=== PATIENT | female | born 1970 | race Caucasian/White ===

== ENCOUNTER 2017-03-04 01:25 | Observation (INO) ==
[2017-03-04 02:04] LABS: Bilirubin,Urine Small (Negative); Blood,Urine Negative (Negative); Clarity,Urine Cloudy (Clear); Color,Urine Yellow (Yellow); Glucose,Urine (UA) Normal (Normal); Ketones,Urine Negative (Negative); Leukocyte Esterase,Urine Negative (Negative); Nitrite,Urine Negative (Negative); PH,Urine 5.5 pH Units (5.0-8.0); Protein,Urine Negative (Neg-Trace); Specific Gravity,Urine 1.029 (1.010-1.025); Urobilinogen,Urine Normal (Normal)
[2017-03-04 02:06] LABS: Bacteria,Urine None Seen per hpf (None-Few); Hyaline Casts,Urine None Seen per lpf (None-Few); Squamous Epithelial Cell,Urine Many per lpf (None-Few)
[2017-03-04 02:15] LABS: Mucus,Urine Few (Few)
[2017-03-04 02:17] LABS: Basophils # 0.1 K/mcL (0.0-0.2); Basophils % 0.8 %; Eosinophils # 0.1 K/mcL (0.0-0.6); Eosinophils % 2.2 %; Hematocrit 44.4 % (35.3-44.9); Immature Granulocytes % 0.2 % (0-4); Lymphocytes # 1.6 K/mcL (0.6-4.6); Mean Corpuscular HGB Conc 33.8 g/dL (31.6-35.5); Mean Corpuscular Hemoglobin 32.1 pg (28.0-33.3); Mean Corpuscular Volume 95.1 fL (83.0-100.0); Mean Platelet Volume 11.5 fL (9.4-12.4); Monocytes # 0.7 K/mcL (0.0-1.3); Monocytes % 10.6 %; Neutrophils # 3.8 K/mcL (1.6-8.9); Platelet Count 243 K/mcL (140-400); Red Blood Count 4.67 M/mcL (3.82-4.97); Red Cell Distribution Width 12.4 % (11.5-14.5); Segmented Neutrophils % 60.2 %
[2017-03-04 02:28] LABS: Alanine Aminotransferase 18 Units/L (0-55); Albumin 3.5 g/dL (3.5-5.0); Alkaline Phosphatase 68 Units/L (38-126); Aspartate Amino Transferase 19 Units/L (5-34); BUN/Creatinine Ratio 10 (6-26); Bilirubin,Direct 0.3 mg/dL (0.0-0.5); Bilirubin,Indirect 0.5 mg/dL (0.0-1.2); Bilirubin,Total 0.8 mg/dL (0.2-1.2); Blood Urea Nitrogen 8 mg/dL (7-20); Calcium 9.1 mg/dL (8.6-10.8); Carbon Dioxide 23 mEq/L (19-29); Chloride 108 mEq/L (98-109); Globulin 3.5 g/dL (2.4-3.5); Glucose 96 mg/dL (70-99); Lipase 16 Units/L (8-78); Osmolality,Calculated 290 (280-300); Potassium 3.8 mEq/L (3.5-4.5); Sodium 141 mEq/L (136-145); eGFR For African Americans > 60 (> 60); eGFR For Non-African Americans > 60 (> 60)
[2017-03-04] MEDS ORDERED: *HR* Morphine 2 MG/ML SYRINGE IVP ONE (03:13)
[2017-03-04] MEDS ORDERED: Ondansetron 4 MG/2 ML VIAL IVP ONE (03:13)
--- NOTE | 2017-03-04 03:21 | Emergency Department Note ---
Disposition Clinical Impression: Ventral hernia Disposition: Admitted As Inpatient Condition: Fair Time of Disposition: 05:02 Abdominal Pain HPI - General Chief Complaint: ED Abdominal Pain Stated Complaint: abdominal pain Time Seen by Provider: 03/04/17 02:40 Source: patient - History of Present Illness HPI Narrative: Patient is a 46-year-old female presents today complaint of abdominal pain. Patient states that around 9 PM yesterday evening she had an episode where she nearly tripped over a child, she braced herself, and felt a pulling sensation in her epigastric abdomen. Patient is status post gastric sleeve with hernia repair on 10/03/2016. She states that she is appreciated a small knot in her epigastric abdomen for the last 2-3 weeks. However following the events this evening she is having extreme abdominal pain rated 8/10. HEENT is described as a pulling sensation. She states "it feels like someone is taking my guts and pulling. Patient states the pain is improved when she is holding her abdomen. Pain is worsened by moving, throwing up, or deep inspiration. Patient describes associated vomiting 2 episodes today. Vomit was nonbloody but described as gritty, light brown. Patient admits chronic diarrhea since her gastric sleeve surgery. She complains that she has dark red blood on the toilet paper after wiping since surgery. Patient has a follow-up with her surgeon on March 15. She also complains of headache that began 2 hours ago. She states that her headache developed while riding in the car to the hospital. Patient locates pain to central forehead. It is indurated 4/10. Pain radiates over the calvarium to the parietal scalp and a posterior fashion. Patient states the pain is better with holding pressure to the frontal head. Pain is made worse by bright light. Admits photophobia. Denies phonophobia, dizziness, numbness, tingling... Pain Scale: 8 - Related Data Previous Rx's Medication Instructions Recorded Hydrocodone/Acetaminophen [[place] 1 tab PO Q6H PRN #10 tab 08/20/15 10-325 Tablet] Omeprazole [PriLOSEC] 40 mg PO DAILY #14 capsule. 08/20/15 Albuterol Sulfate [Albuterol 2 puff IH Q4HR PRN #1 hfa.aer.ad 08/17/16 Inhaler] Cefdinir [Omnicef] 300 mg PO BID #14 capsule 08/17/16 GuaiFENesin/Codeine [Robitussin 5 ml PO Q6HR PRN #100 ml 08/17/16 w/Codeine] predniSONE [Prednisone] 50 mg PO DAILY #5 tablet 08/17/16 Allergies Allergy/AdvReac Type Severity Reaction Status Date / Time No Known Allergies Allergy Verified 12/15/16 21:53 All systems ED: reviewed and negative except as stated. Constitutional: Reports: as per HPI Eyes: Reports: as per HPI ENT ED: Reports: as per HPI Cardiovascular: Reports: as per HPI Respiratory: Reports: as per HPI Gastrointestinal: Reports: as per HPI Genitourinary: Reports: as per HPI Musculoskeletal: Reports: as per HPI Integumentary: Reports: as per HPI Neurological: Reports: as per HPI Psychiatric: Reports: as per HPI Endocrine: Reports: as per HPI Hematological/Lymphatic: Reports: as per HPI Allergic/Immunologic: Reports: as per HPI Abdominal Pain PMH - Past Medical History Medical history: Reports: no medical history Female Surgical History: Reports: Adenoidectomy, herniorrhaphy, Tonsillectomy, other SEAT MAKER history: Reports: no SEAT MAKER history Psychiatric history: Reports: no psych history - Social History Smoking status: Never smoker Alcohol use: Reports: none Drug use: Reports: none Physical Exam - General Limitations: no limitations General appearance: alert, in no apparent distress - Head Head exam: atraumatic, normocephalic, normal inspection - Eye Eye exam: Present: normal appearance, EOMI - ENT ENT exam: normal exam - Neck Neck exam: Present: normal inspection, full ROM, trachea midline - Chest Chest inspection: Present: normal inspection, symmetric chest wall rise - Respiratory Respiratory exam: Present: normal lung sounds bilaterally. Absent: respiratory distress, wheezes, stridor, accessory muscle use - Cardiovascular Cardiovascular exam: Present: regular rate, normal rhythm, +S1, +S2. Absent: systolic murmur, diastolic murmur - Abdominal Exam Abdominal exam: Present: soft, tenderness (I appreciated an approximately 2 cm mass to epigastric region. Exquisite TTP 2 areas surrounding this mass. ), guarding (Voluntary), normal bowel sounds, mass. Absent: distention, rebound, rigidity Abdominal tenderness: Present: epigastrium - Extremities Exam Extremities exam: Present: normal inspection, full ROM. Absent: pedal edema - Back Exam Back exam: Present: normal inspection, full ROM - Neurological Exam Neurological exam: Present: alert, oriented X3, CN II-XII intact - Psychiatric Psychiatric exam: Present: normal affect, normal mood - Skin Skin exam: Present: warm, dry, intact Course Vital Signs Temperature 97.5 F L 03/04/17 01:25 Pulse Rate 88 03/04/17 01:25 Respiratory Rate 20 03/04/17 01:25 Blood Pressure 142/96 03/04/17 01:25 O2 Sat by Pulse Oximetry 96 03/04/17 01:25 Temperature 97.5 F L 03/04/17 01:25 Pulse Rate 76 03/04/17 04:45 Respiratory Rate 18 03/04/17 05:15 Blood Pressure 134/73 03/04/17 05:15 O2 Sat by Pulse Oximetry 96 03/04/17 04:45 Oxygen Delivery Oxygen Delivery Room Air Abdominal Pain - MDM Narrative Medical decision making narrative: Patient is a 46-year-old female who presents with epigastric abdominal pain. Patient is status post gastric sleeve with ventral hernia repair on 10/03/2017 at [facility]. On exam patient has a palpable mass to the epigastric that is exquisitely tender to palpation. Vital signs are normal. CBC is normal. CT abdomen demonstrates a ventral hernia with fat stranding and trace fluid in the supraumbilical ventral hernia that suggests strangulated omentum. The patient wishes to have surgery performed at [facility], if possible. I have spoken to Dr. Diop who accepts the patient to his service. - Lab Data Lab results reviewed: Yes I reviewed the patient's lab results. Result diagrams: 03/04/17 02:05 03/04/17 02:05 Lab Results 03/04/17 03/04/17 03/04/17 Range/Units 01:58 01:58 02:05 WBC 6.3 (4.3-11.1) K/mcL RBC 4.67 (3.82-4.97) M/mcL Hgb 15.0 (11.5-15.4) g/dL Hct 44.4 (35.3-44.9) % MCV 95.1 (83.0-100.0) fL MCH 32.1 (28.0-33.3) pg MCHC 33.8 (31.6-35.5) g/dL RDW 12.4 (11.5-14.5) % Plt Count 243 (140-400) K/mcL MPV 11.5 (9.4-12.4) fL Immature Gran % 0.2 (0-4) % Seg Neutrophils % 60.2 % Lymphocytes % 26.0 % Monocytes % 10.6 % Eosinophils % 2.2 % Basophils % 0.8 % Neutrophils # 3.8 (1.6-8.9) K/mcL Lymphocytes # 1.6 (0.6-4.6) K/mcL Monocytes # 0.7 (0.0-1.3) K/mcL Eosinophils # 0.1 (0.0-0.6) K/mcL Basophils # 0.1 (0.0-0.2) K/mcL Sodium (136-145) mEq/L Potassium (3.5-4.5) mEq/L Chloride (98-109) mEq/L Carbon Dioxide (19-29) mEq/L BUN (7-20) mg/dL Creatinine (0.57-1.11) mg/dL Est GFR ( Amer) (> 60) Est GFR (Non-Af Amer) (> 60) BUN/Creatinine Ratio (6-26) Glucose (70-99) mg/dL Calculated Osmolality (280-300) Calcium (8.6-10.8) mg/dL Total Bilirubin (0.2-1.2) mg/dL Direct Bilirubin (0.0-0.5) mg/dL Indirect Bilirubin (0.0-1.2) mg/dL AST (5-34) Units/L ALT (0-55) Units/L Alkaline Phosphatase (38-126) Units/L Troponin I (0-0.03) ng/mL Serum Total Protein (6.0-8.3) g/dL Albumin (3.5-5.0) g/dL Globulin (2.4-3.5) g/dL Albumin/Globulin Ratio (1.1-2.2) Lipase (8-78) Units/L Urine Color Yellow (Yellow) Urine Clarity Cloudy A (Clear) Urine pH 5.5 (5.0-8.0) pH Units Ur Specific [place] 1.029 H (1.010-1.025) Urine Protein Negative (Neg-Trace) mg/dL Urine Glucose (UA) Normal (Normal) mg/dL Urine Ketones Negative (Negative) mg/dL Urine Blood Negative (Negative) Urine Nitrite Negative (Negative) Urine Bilirubin Small H (Negative) Urine Urobilinogen Normal (Normal) mg/dL Ur Leukocyte Esterase Negative (Negative) Urine Microscopic RBC Test Not Performed Urine Microscopic WBC 5-15 H (0-3) per hpf Ur Squamous Epith Cells Many H (None-Few) per lpf Urine Bacteria None Seen (None-Few) per hpf Hyaline Casts None Seen (None-Few) per lpf Urine Mucus Few (Few) Ur Culture Indicated? YES A (NO) Urine Test Negative (Negative) 03/04/17 03/04/17 Range/Units 02:05 02:05 WBC (4.3-11.1) K/mcL RBC (3.82-4.97) M/mcL Hgb (11.5-15.4) g/dL Hct (35.3-44.9) % MCV (83.0-100.0) fL MCH (28.0-33.3) pg MCHC (31.6-35.5) g/dL RDW (11.5-14.5) % Plt Count (140-400) K/mcL MPV (9.4-12.4) fL Immature Gran % (0-4) % Seg Neutrophils % % Lymphocytes % % Monocytes % % Eosinophils % % Basophils % % Neutrophils # (1.6-8.9) K/mcL Lymphocytes # (0.6-4.6) K/mcL Monocytes # (0.0-1.3) K/mcL Eosinophils # (0.0-0.6) K/mcL Basophils # (0.0-0.2) K/mcL Sodium 141 (136-145) mEq/L Potassium 3.8 (3.5-4.5) mEq/L Chloride 108 (98-109) mEq/L Carbon Dioxide 23 (19-29) mEq/L BUN 8 (7-20) mg/dL Creatinine 0.79 (0.57-1.11) mg/dL Est GFR ( Amer) > 60 (> 60) Est GFR (Non-Af Amer) > 60 (> 60) BUN/Creatinine Ratio 10 (6-26) Glucose 96 (70-99) mg/dL Calculated Osmolality 290 (280-300) Calcium 9.1 (8.6-10.8) mg/dL Total Bilirubin 0.8 (0.2-1.2) mg/dL Direct Bilirubin 0.3 (0.0-0.5) mg/dL Indirect Bilirubin 0.5 (0.0-1.2) mg/dL AST 19 (5-34) Units/L ALT 18 (0-55) Units/L Alkaline Phosphatase 68 (38-126) Units/L Troponin I 0.00 (0-0.03) ng/mL Serum Total Protein 7.0 (6.0-8.3) g/dL Albumin 3.5 (3.5-5.0) g/dL Globulin 3.5 (2.4-3.5) g/dL Albumin/Globulin Ratio 1.0 L (1.1-2.2) Lipase 16 (8-78) Units/L Urine Color (Yellow) Urine Clarity (Clear) Urine pH (5.0-8.0) pH Units Ur Specific [place] (1.010-1.025) Urine Protein (Neg-Trace) mg/dL Urine Glucose (UA) (Normal) mg/dL Urine Ketones (Negative) mg/dL Urine Blood (Negative) Urine Nitrite (Negative) Urine Bilirubin (Negative) Urine Urobilinogen (Normal) mg/dL Ur Leukocyte Esterase (Negative) Urine Microscopic RBC Urine Microscopic WBC (0-3) per hpf Ur Squamous Epith Cells (None-Few) per lpf Urine Bacteria (None-Few) per hpf Hyaline Casts (None-Few) per lpf Urine Mucus (Few) Ur Culture Indicated? (NO) Urine Test (Negative) - Radiology Data Radiology results reviewed: Yes I reviewed the patient's radiology results. - EKG Data EKG attestation: Yes I reviewed and interpreted this EKG. EKG results narrative: EKG is normal sinus rhythm with no ST segment or T-wave changes to suggest ischemia. Attestation Statement - Attestation Attestation: I, Mode Kellogg MD, personally evaluated this patient and discussed their management with the resident physician. I reviewed the resident's note and agree with the documented findings, medical decision making, and plan of care. 46-year-old female presents to the emergency department with a complaint of mid upper epigastric abdominal pain associated with nausea and vomiting which started about 9 or 10 PM last evening. Patient has a previous history of gastric sleeve surgery and hernia repair. She states that she has had a knot in the epigastric region for the past few weeks which has gotten worse and is in the area of the pain. On examination patient is a well-developed obese female in no acute distress. She is alert and oriented 3. There is no cyanosis or diaphoresis. Patient does appear to be in moderate discomfort. Breath sounds are clear and equal bilaterally. Heart regular rate and rhythm. Abdomen is soft with normal bowel sounds. There is moderate midepigastric tenderness with a firm palpable midline tender mass. Labs reviewed and unremarkable. CT shows a ventral hernia with suspected incarcerated omentum. The surgeon motion graphics artist, Dr. diop, was consulted and accepted admission of the patient to his service.
[2017-03-04] MEDS ORDERED: *HR* HYDROmorphone (PF) 1 MG/ML SYRINGE IVP ONE (04:32)
[2017-03-04] MEDS ORDERED: *HR* HYDROmorphone 2 MG/ML SYRINGE IVP ONE ×2 (05:14→05:20)
[2017-03-04] MEDS ORDERED: Ringers Solution, Lactated 500 ML IVC ONE (08:58)
[2017-03-04] MEDS ORDERED: Ondansetron 4 MG/2 ML VIAL IVP PRN (08:58)
[2017-03-04] MEDS ORDERED: *HR* HYDROmorphone (PF) 1 MG/ML SYRINGE IVP PRN (08:58)
[2017-03-04] MEDS ORDERED: Ringers Solution, Lactated 1,000 ML IVC SCH (09:00)
--- NOTE | 2017-03-04 09:00 | General Surg History&Physical ---
Date of Encounter: 03/04/17 Time of Encounter: 08:20 History of Present Illness Chief complaint: abdominal pain, incarcerated ventral hernia HPI: Ms. Frantz Ness is a 46 year old female referred to surgical services after presenting to the emergency room with abrupt onset abdominal pain, nausea and vomiting. The patient describes to me that she was at the "races" when a patron in front of her fell in the bleachers. She grabbed for him with sudden onset abdominal pain after feeling a tearing sensation. The patient presented to the emergency room due to the severe pain and the onset of nausea and vomiting. CT showed an epigastric ventral hernia with prolapsing preperitoneal fat. There is some inflammatory streaking described. The ventral hernia appears similar to that seen on CT in July 2015 but at that time there were no inflammatory changes. Past medical history: Morbid obesity Surgical history: Tonsillectomy, adenoidectomy, gastric sleeve (approximately 4 months ago) with concomitant repair of the ventral hernia which obviously has recurred. Allergies: No known drug allergies Medications: The patient reports using only vitamins following her gastric surgery Social history: G2, P2; , lives at home with her spouse. Patient has never smoked; denies any alcohol or illicit drug use. On physical examination: The patient appears to be age-appropriate, in no acute distress. She is resting comfortably in her hospital bed. She has been repeatedly medicated in the emergency department for pain, nausea and vomiting. She has been afebrile 97.6; pulse 65; respirations 16, blood pressure 134/73. however, since arriving on the floor blood pressure has diminished to 95/62 likely due to the narcotic analgesics and antiemetics. The patient indicates that she has lost approximately 70 pounds since her gastric surgery Skin is warm, no obvious jaundice Lungs: Clear; some anterior abdominal wall pain with deep inspiration Cardiac: Regular rate, no appreciable murmurs Abdomen: Essentially midway twin xiphoid and the umbilicus is a tender subcutaneous mass. The mass is poorly defined but corresponds to the CT findings of a ventral hernia. A small surgical scar is in the vicinity consistent with prior attempt at repair. The abdomen is otherwise nontender; bowel sounds hypoactive Extremities no obvious clubbing cyanosis or edema Laboratories: White count 6.3, hemoglobin 15.0, hematocrit 44.4, platelet count 243,000 Electrolytes within normal limits Bun 8, creatinine 0.79 Urine negative Impression: Incarcerated ventral hernia containing preperitoneal fat. Due to pain and repeated nausea vomiting surgical repair has been discussed. Options include open repair via single incision versus laparoscopic versus robotic. Patient has opted to proceed with the single incision (open) repair. Mesh will be used. Risks of surgery include hemorrhage, infection, injury to adjacent structures, intra-abdominal abscess, and recurrent hernia. The patient's morbid obesity increases the risk of pulmonary and cardiac risks such hypoxia, pneumonia, cardiac dysrhythmia, GA. Consent for surgery has been obtained. Past Med Surg Social Fam HX - Past Medical History Medical history: no medical history Psychiatric history: no psych history - Past Surgical History Surgical History: appendectomy, orthopedic, other - Social History Smoking Status: Never smoker Smokeless Tobacco Status: No Alcohol use: none Drug use: none - Family History Father Hx Family Cardiac Disorders: Yes (MIx3) Hx Family Cancer: Yes (colon cancer) Hx Family Endocrine Disorder: Yes (diabetes) Mother Hx Family Cancer: Yes (Non Hodgkins lymphoma stage 4) Medications and Allergies Hydrocodone/Acetaminophen [[place] 10-325 Tablet] 1 tab PO Q6H PRN #10 tab [Rx] Omeprazole [PriLOSEC] 40 mg PO DAILY #14 capsule.dr 08/20/15 [Rx] Albuterol Sulfate [Albuterol Inhaler] 2 puff IH Q4HR PRN #1 hfa.aer.ad 08/17/16 [Rx] Cefdinir [Omnicef] 300 mg PO BID #14 capsule 08/17/16 [Rx] GuaiFENesin/Codeine [Robitussin w/Codeine] 5 ml PO Q6HR PRN #100 ml 08/17/16 [Rx ] predniSONE [Prednisone] 50 mg PO DAILY #5 tablet 08/17/16 [Rx] Allergies No Known Allergies Allergy (Verified 12/15/16 21:53) Review of Systems All systems PM: A 10-system review of systems was performed and is negative for pertinent findings except as documented above in the HPI. General Surgery Exam Initial Vital Signs Temp Pulse Resp BP Pulse Ox 97.5 F L 88 20 142/96 96 03/04/17 01:25 03/04/17 01:25 03/04/17 01:25 03/04/17 01:25 03/04/17 01:25 Results - Labs 03/04/17 02:05 03/04/17 02:05 Abnormal lab results Albumin/Globulin Ratio 1.0 (1.1-2.2) L 03/04/17 02:05 Urine Clarity Cloudy (Clear) A 03/04/17 01:58 Ur Specific [place] 1.029 (1.010-1.025) H 03/04/17 01:58 Urine Bilirubin Small (Negative) H 03/04/17 01:58 Urine Microscopic WBC 5-15 per hpf (0-3) H 03/04/17 01:58 Ur Squamous Epith Cells Many per lpf (None-Few) H 03/04/17 01:58 Ur Culture Indicated? YES (NO) A 03/04/17 01:58 All other labs normal.
[2017-03-04] MEDS ORDERED: Bupivacaine/EPI 1:200k 0.25%PF 30 ML VIAL ONE ×2 (10:08→10:09)
--- NOTE | 2017-03-04 10:09 | Anesthesia Evaluation PreOp ---
Date of Encounter: 03/04/17 Time of Encounter: 10:10 - Past History Planned Operation: Incarcerated Incisional Hernia Repair Cardiac History: Denies any Significant Hx Pulmonary History: Denies Any Significant HX FIELD ENGINEER History: Denies Any Significant HX Other Medical History: GERD, Other (Morbid Obesity) Anesthesia History: No Prior Anesthetic Complications : No Test: Negative Alcohol Use: none Drug use: none Medications and Allergies Omeprazole [PriLOSEC] 40 mg PO DAILY #14 capsule. 08/20/15 [Rx] Vit/Iron Fumarate/FA [ Tablet] 1 each PO 03/04/17 [History] Vitamin B-12 PO DAILY 03/04/17 [History] Allergies No Known Allergies Allergy (Verified 12/15/16 21:53) - Meds/Allergy Pre-op Review Medications Reviewed: Yes Allergies Reviewed: Yes Beta Blockers on Current Med List: No Anesthesia Results - Labs 03/04/17 02:05 03/04/17 02:05 Laboratory Tests 03/04/17 03/04/17 03/04/17 01:58 02:05 02:05 Hgb 15.0 Hct 44.4 Plt Count 243 Sodium 141 Potassium 3.8 BUN 8 Creatinine 0.79 Urine Test Negative Anesthesia Exam O2 Sat Height 1.6 m Height 1.6 m Weight 111.1 kg Weight 89.811 kg O2 Sat by Pulse Oximetry 90 O2 Sat by Pulse Oximetry 96 O2 Sat by Pulse Oximetry 96 Vital Signs Temp Pulse Resp BP Pulse Ox 97.5 F L 88 20 142/96 96 03/04/17 01:25 03/04/17 01:25 03/04/17 01:25 03/04/17 01:25 03/04/17 01:25 Height: 5'3 Weight: 244 lbs NPO (# of Hours): MN Pain Scale: 0 - HEENT Pupil (Motor): Pupils equal, EOMI Mallampati: III Teeth: Normal Oral Opening: Less than or equal to 3 - FIELD ENGINEER LOC: Oriented FIELD ENGINEER Motor: Normal RUE, Normal LUE, Normal RLE, Normal LLE, Normal Face FIELD ENGINEER Sensory: Normal: RUE, LUE, RLE, LLE, Face - Cardiac Rhythm: Regular Murmur: None JVD: No Carotid Bruit: No - Pulmonary Breath Sounds: bilateral Clear Respiratory Effort: Symmetrical Anesthesia Assess/Plan ASA Score: 3 (MO Gerd) Modified [place] Scale for Level of Consciousness: Cooperative, oriented, and tranquil Anesthetic Plan: General Monitoring Plan: Standard Monitors Recovery Plan: PACU (Dsiscussed GA, agrees to proceed)
[2017-03-04] MEDS ORDERED: Acetaminophen IV 1,000 MG/100 ML INFUS..BTL ONE (10:15)
[2017-03-04] MEDS ORDERED: Famotidine 20 MG/2 ML VIAL ONE (10:15)
[2017-03-04] MEDS ORDERED: Lidocaine -MPF 4% 5 ML AMPUL ONE (10:17)
[2017-03-04] MEDS ORDERED: *HR* Propofol 200 MG/20 ML VIAL IVP ONE (10:17)
[2017-03-04] MEDS ORDERED: *HR* Succinylcholine 200 MG/10 ML VIAL IVP ONE (10:17)
[2017-03-04] MEDS ORDERED: Dexamethasone 4 MG/ML VIAL ONE ×2 (10:17→11:02)
[2017-03-04] MEDS ORDERED: Ondansetron 4 MG/2 ML VIAL ONE (10:17)
[2017-03-04] MEDS ORDERED: *HR* FentaNYL (PF) 100 MCG/2 ML VIAL ONE (10:17)
[2017-03-04] MEDS ORDERED: Lidocaine -MPF 2% 2 ML VIAL ONE (10:17)
[2017-03-04] MEDS ORDERED: Neostigmine Methylsulfate 3 MG/3 ML SYRINGE ONE (11:33)
--- NOTE | 2017-03-04 11:42 | Operative Note ---
Date of procedure: 03/04/17 Pre-op diagnosis: Epigastric ventral hernia with incarcerated preperitoneal fat Post-op diagnosis: same Procedure: Repair of incarcerated ventral hernia with Bard 8 cm Ventralex Hernia patch Implants: Bard 8 cm Ventralex Hernia patch Complications: None apparent Anesthesia: GETA Local Anesthetics: 0.25% Sensorcaine HCL with Epinephrine 1:200,000 SubQ (cc) ( 30 mL) Surgeon: Joe Sears Estimated blood loss (cc): 5 IV fluids (cc): 600 Specimen: hernia sac Condition: stable Disposition: PACU Procedure in Detail: The patient was brought to the operating room where she was placed supine upon the operating room table. The patient was appropriately identified as to person and procedure. The accuracy of this information was confirmed by the procedure team. The patient was then intubated and anesthetized under the supervision of Dr. Brodie Cage. The abdomen was examined after induction of anesthesia with the hernia identified and marked. The abdomen was then prepped and draped in usual sterile fashion. Several milliliters of 0.25% bupivacaine with 1-200,000 units epinephrine was infiltrated into the skin at the proposed incision site. The skin was then incised, dissection was carried to through the subcutaneous fat. Bleeding points were controlled with electrocautery. As dissection proceeded towards the abdominal fascia the hernia was identified and skeletonized from the surrounding tissue. The hernia sac was entered atraumatically and the incarcerated preperitoneal fat was mobilized. The hernia sac was excised at the level of the fascia. The fascial defect measured approximately 3.5 cm in diameter. An examination of the anterior abdominal wall demonstrated no other fascial hernia. I selected a 8 cm Bard Ventralex Hernia Patch to repair this ventral defect. The mesh was placed trans-fascial into the abdominal cavity. The mesh straps were used to approximate the mesh prosthesis to the anterior abdominal wall. Care was taken have no interposed tissue. The fascia was then closed in the midline with interrupted figure-of- eight 0 Vicryl incorporating the knitted polypropylene mesh layer of the composite hernia patch in the fascial repair. The mesh straps were cut at the level of the fascia. Additional bupivacaine with epinephrine was infiltrated into the fascial edges. The subcutaneous tissue was reapproximated with running 3-0 Vicryl. The skin edges were then infiltrated with additional bupivacaine with epinephrine and then approximated with subcuticular 4-0 Vicryl. The incision was sealed with Dermabond dermal adhesive. An abdominal binder was applied. Total volume of 0.25% bupivacaine with 1 200,000 units epinephrine was 30 mL. Needle, sponge, and instrument counts were correct at the close of the case. The patient was transported to PACU in stable condition.
--- NOTE | 2017-03-04 11:52 | Anesthesia Evaluation Post Op ---
Date of Encounter: 03/04/17 Time of Encounter: 12:00 - Vital Signs Vital Signs: Vital Signs/O2 Sat/Glucose, Most Current Temp Pulse Resp BP Pulse Ox 03/04/17 11:40 97.2 F L 74 16 123/71 97 - Lungs Lungs: Clear Ascult./Percussion - Airway Airway: Non-obstructed - Cardiovascular Regular Rate - Mental Status Mental Status: Alert & Oriented, Answers Appropriately - Pain Pain Scale: 0 - Nausea Vomiting Nausea Vomiting: Not Present - Hydration Hydration: NPO - Discharge PostOp Status: Transfer Patient to floor
[2017-03-04] MEDS ORDERED: Acetaminophen 325 MG TABLET PO PRN (12:20)
[2017-03-04] MEDS: Ondansetron 4 MG/2 ML VIAL IVP PRN (12:46)
[2017-03-04] MEDS: Ringers Solution, Lactated 1,000 ML IVC SCH (17:06)
[2017-03-04] MEDS: *HR* OxyCODONE/APAP 5/325 TABLET PO PRN (20:48)
[2017-03-05] MEDS: Ringers Solution, Lactated 1,000 ML IVC SCH ×2 (02:45→13:37)
[2017-03-05] MEDS: *HR* OxyCODONE/APAP 5/325 TABLET PO PRN ×3 (03:02→19:55)
[2017-03-05] MEDS: Ondansetron 4 MG/2 ML VIAL IVP PRN (03:37)
[2017-03-05] MEDS: *HR* HYDROmorphone (PF) 1 MG/ML SYRINGE IVP PRN ×2 (08:01→13:38)
[2017-03-05] MEDS: Prenatal Vit/FA 1 EACH TABLET PO SCH (08:06)
--- NOTE | 2017-03-05 11:24 | Electrocardiograph Report ---
[address] [place], [place] [address] Test Date: 2017-03-04 Pat Name: Shilo Ness Department: [id number] Room: 3A44 Gender: F Director Of Automation: : 1970 Requested By: Mode Kellogg Order Number: [id number] Reading MD: Pooja Chavez Measurements Intervals [place] Rate: 85 P: 21 AR: 136 QRS: -8 QRSD: 86 T: 26 QT: 330 QTc: 373 Interpretive Statements SINUS RHYTHM LOW QRS VOLTAGE IN PRECORDIAL LEADS POSSIBLE ANTERIOR MYOCARDIAL INFARCTION, OF INDETERMINATE AGE ARTIFACT Electronically Signed On 03-05-2017 11:22:49 EDT by Pooja Chavez
[2017-03-05] MEDS ORDERED: Ringers Solution, Lactated 1,000 ML ONE (13:31)
--- NOTE | 2017-03-05 18:15 | General Surgery Progress Note ---
Date of Encounter: 03/05/17 Time of Encounter: 18:09 Subjective Patient reports: still having pain, nausea Narrative: POD #1 - patient seen approx 11:15 this AM and again this evening. Patient c/o incisional pain as expected. Also c/o nausea with emesis after meals. Discharge deferred to tonight. The patient is still c/o nausea but emesis has resolved. Incisional pain persists. Afebrile, 98.5; pulse 74, respirations 16, blood pressure 105/70 SPO2 on 2 L/ m nasal cannula 97% Lungs clear to auscultation but weak, ineffective cough. Abdomen: Soft, nondistended. Incision clean and dry. No erythema or edema. The skin edges are well approximated. No obvious intra-abdominal masses or rebound. Active bowel sounds. Impression: Postoperative day 1, s/p repair of incarcerated ventral hernia with mesh Postoperative incisional pain not yet controlled with oral analgesics, persistent postoperative nausea Plan: Defer discharge Continue IV fluids Encourage cough and deep breathing as well as incentive spirometry Activity out of bed Maintain IV until nausea resolves and oral intake improves. Objective Vital Signs - Last 8 Hours Temp Pulse Resp BP Pulse Ox 03/05/17 14:26 98.5 F 74 17 105/70 97 03/05/17 10:49 98.2 F 75 18 111/74 92 Intake and Output 03/05/17 03/05/17 03/05/17 07:59 15:59 23:59 Intake Total 1000 / 1000 880 / 880 Output Total 300 / 300 Balance 1000 / 1000 580 / 580 Intake: IV Fluids 1000 / 1000 Lactated Ringers 1,000 ML 1000 / 1000 @ 100 mls/hr IVC .Q10H IV[facility] Rx#:[id number] Oral 880 / 880 Output: Urine 300 / 300 Other: Meal Lunch Percent of Meal Consumed 25% # Voids 1 - Labs 03/04/17 02:05 03/04/17 02:05 - VTE Documentation of Mechanical Device: Intermittent pneumatic compression device Consult Discharge Plan - Plan Referrals: Vivien Hummel, ART HISTORY INSTRUCTOR [Primary Care Provider] -
[2017-03-06] MEDS: Ringers Solution, Lactated 1,000 ML IVC SCH ×2 (00:55→10:09)
[2017-03-06] MEDS: *HR* HYDROmorphone (PF) 1 MG/ML SYRINGE IVP PRN (00:56)
[2017-03-06 06:06] LABS: Basophils % 0.7 %; Eosinophils # 0.2 K/mcL (0.0-0.6); Hematocrit 38.8 % (35.3-44.9); Hemoglobin 12.5 g/dL (11.5-15.4); Immature Granulocytes % 0.3 % (0-4); Lymphocytes # 1.4 K/mcL (0.6-4.6); Mean Corpuscular HGB Conc 32.2 g/dL (31.6-35.5); Mean Corpuscular Hemoglobin 31.6 pg (28.0-33.3); Mean Corpuscular Volume 98.2 fL (83.0-100.0); Mean Platelet Volume 11.4 fL (9.4-12.4); Monocytes # 0.6 K/mcL (0.0-1.3); Monocytes % 10.1 %; Neutrophils # 3.5 K/mcL (1.6-8.9); Platelet Count 177 K/mcL (140-400); Red Blood Count 3.95 M/mcL (3.82-4.97); Red Cell Distribution Width 12.5 % (11.5-14.5); Segmented Neutrophils % 60.9 %
[2017-03-06 06:23] LABS: BUN/Creatinine Ratio 6 (6-26); Calcium 8.6 mg/dL (8.6-10.8); Carbon Dioxide 24 mEq/L (19-29); Chloride 107 mEq/L (98-109); Glucose 80 mg/dL (70-99); Osmolality,Calculated 288 (280-300); Potassium 3.6 mEq/L (3.5-4.5); Sodium 141 mEq/L (136-145); eGFR For African Americans > 60 (> 60); eGFR For Non-African Americans > 60 (> 60)
[2017-03-06 06:24] LABS: Blood Urea Nitrogen 4 mg/dL (7-20)
[2017-03-06] MEDS: Prenatal Vit/FA 1 EACH TABLET PO SCH (08:28)
[2017-03-06] MEDS: *HR* OxyCODONE/APAP 5/325 TABLET PO PRN ×2 (08:29→14:15)
[2017-03-06] MEDS: Ondansetron 4 MG/2 ML VIAL IVP PRN (09:19)
[2017-03-06 10:44] VITALS: BP 110/74
--- NOTE | 2017-03-06 13:58 | General Surgery Progress Note ---
Date of Encounter: 03/06/17 Time of Encounter: 13:50 Subjective Patient reports: feels better, pain is less Narrative: POD #2 - patient feeling better. Incisional pain reduced and controlled with oral medications (Percocet). Nausea resolved. No further emesis. Patient is afebrile, 98.5; pulse 77, respirations 18, blood pressure 110/74. SPO2 on 1 L/m nasal cannula 93%; on 2 L/m nasal cannula 94%. Off oxygen supplementation, SPO2 84-85% but no respiratory distress Lungs: Clear to auscultation, less pain on deep inspiration or cough. Incentive spirometry still limited to approximately 5218-1275 mL Abdomen: Soft, minimal incisional pain. Incision clean and healing well. Skin edges well approximated. Active bowel sounds. Laboratories: White count 5.8, hemoglobin 12.5 with hematocrit 38.8; platelet count 177,000. Electrolytes, BUN, creatinine are within normal limits Impression: Postoperative day 2, status post repair of epigastric ventral hernia with mesh prosthesis. Mild postoperative hypoxia likely due to hypoventilation likely due to incisional pain Otherwise, acceptable postoperative status Plan: Discharge home Regular diet Incentive spirometry, cough and deep breathing encouraged Patient should follow up with Nida Hummel CNP, 1-2 days post discharge to check SPO2/respiratory status Follow up my office, 03/09/2017. Patient to call office to make appointment Activity as tolerated, lifting limited to less than 20 pounds. Objective Vital Signs - Last 8 Hours Temp Pulse Resp BP Pulse Ox 03/06/17 10:00 98.5 F 77 18 110/74 93 03/06/17 07:40 98.4 F 71 16 112/77 94 Intake and Output 03/05/17 03/06/17 03/06/17 23:59 07:59 15:59 Intake Total 60 / 60 1000 / 1000 1240 / 1240 Output Total 300 / 300 600 / 600 450 / 450 Balance -240 / -240 400 / 400 790 / 790 Intake: IV Fluids 1000 / 1000 1000 / 1000 Lactated Ringers 1,000 ML 1000 / 1000 1000 / 1000 @ 75 mls/hr IVC .[id number] [facility] Rx#:[id number] Oral 60 / 60 0 / 0 240 / 240 Output: Urine 300 / 300 600 / 600 450 / 450 Other: Meal Breakfast Percent of Meal Consumed 75% Weight 111.3 kg Patient Weight 03/06/17 23:59 Weight 111.3 kg - Labs 03/06/17 05:04 03/06/17 05:04 Diabetes panel 03/06/17 Range/Units 05:04 Sodium 141 (136-145) mEq/L Potassium 3.6 (3.5-4.5) mEq/L Chloride 107 (98-109) mEq/L Carbon Dioxide 24 (19-29) mEq/L BUN 4 L (7-20) mg/dL Creatinine 0.66 (0.57-1.11) mg/dL Glucose 80 (70-99) mg/dL Calcium 8.6 (8.6-10.8) mg/dL Calcium panel 03/06/17 Range/Units 05:04 Calcium 8.6 (8.6-10.8) mg/dL Pituitary panel 03/06/17 Range/Units 05:04 Sodium 141 (136-145) mEq/L Potassium 3.6 (3.5-4.5) mEq/L Chloride 107 (98-109) mEq/L Carbon Dioxide 24 (19-29) mEq/L BUN 4 L (7-20) mg/dL Creatinine 0.66 (0.57-1.11) mg/dL Glucose 80 (70-99) mg/dL Calcium 8.6 (8.6-10.8) mg/dL Adrenal panel 03/06/17 Range/Units 05:04 Sodium 141 (136-145) mEq/L Potassium 3.6 (3.5-4.5) mEq/L Chloride 107 (98-109) mEq/L Carbon Dioxide 24 (19-29) mEq/L BUN 4 L (7-20) mg/dL Creatinine 0.66 (0.57-1.11) mg/dL Glucose 80 (70-99) mg/dL Calcium 8.6 (8.6-10.8) mg/dL - VTE Documentation of Mechanical Device: Intermittent pneumatic compression device Consult Discharge Plan - Plan Referrals: Vivien Hummel, DROP PRESS HAND [Primary Care Provider] -
--- NOTE | 2017-03-06 14:00 | Discharge Summary ---
Outpatient Proc Discharge Plan - Plan Additional Instructions: Regular diet Patient may shower, wash incision with soap and water Activity as tolerated, lifting limited to less than 20 pounds Patient to continue incentive spirometry, deep breathing and coughing post discharge Follow-up with Vivien Hummel CNP, 1-2 days for SPO2 recheck Follow-up with me, in the office 03/09/2017. Patient to call office AM to make appointment Sunday. Tylenol, ibuprofen, Motrin, Advil, Aleve, etc. as needed for pain Prescription for Percocet 5/325, #20, one every 6 hours as needed for pain not relieved by [id number] medications Prescriptions: OxyCODONE/APAP 5/325 [Percocet 5/325 MG] 1 each PO Q6H PRN #20 tablet PRN Reason: Pain Home Medications: Calcium Carbonate/Vitamin D3 [Calcium 600 + Vit D Tablet] 1 each PO DAILY [History] Cyanocobalamin (Vitamin B-12) [Vitamin B-12] 1,000 mcg SL DAILY 03/04/17 [ History] Omeprazole [PriLOSEC] 40 mg PO DAILY 03/04/17 [History] Vit/Iron Fumarate/FA [ Tablet] 1 each PO DAILY 03/04/17 [ History] Acetaminophen [Tylenol] 650 mg PO Q6HR PRN #0 tablet 03/06/17 [Rx] OxyCODONE/APAP 5/325 [Percocet 5/325 MG] 1 each PO Q6H PRN #20 tablet 03/06/17 [ Rx]
== END 2017-03-06 15:14 | disposition home or self-care (01) ==
LOC: 3NENU 01:25 → EMEROO 01:25 → 3NENU 05:47 → 3ANU 03-05 07:46
PROVIDERS: ADMIT Surgery; ATTEND Surgery

== ENCOUNTER 2017-08-18 21:34 | Observation (INO) ==
[2017-08-18] MEDS ORDERED: 0.9 % Sodium Chloride 1,000 ML IVC ONE (21:47)
[2017-08-18] MEDS ORDERED: Pantoprazole 40 MG VIAL IVP ONE (21:47)
--- NOTE | 2017-08-18 21:50 | Emergency Department Note ---
Disposition Clinical Impression: Abdominal pain, Hematemesis Disposition: Admitted As Inpatient Condition: Good General Adult HPI - General Chief complaint: ED GI Bleed Stated complaint: coughing up blood for 20 mins. Time Seen by Provider: 08/18/17 21:45 Source: patient Limitations: no limitations - History of Present Illness Pain Scale: 7 - Related Data Home Medications Medication Instructions Recorded Confirmed Calcium Carbonate/Vitamin D3 1 each PO DAILY 03/04/17 03/04/17 [Calcium 600 + Vit D Tablet] Cyanocobalamin (Vitamin B-12) 1,000 mcg SL DAILY 03/04/17 03/04/17 [Vitamin B-12] Omeprazole [PriLOSEC] 40 mg PO DAILY 03/04/17 03/04/17 Vit/Iron Fumarate/FA 1 each PO DAILY 03/04/17 03/04/17 [ Tablet] Previous Rx's Medication Instructions Recorded Acetaminophen [Tylenol] 650 mg PO Q6HR PRN #0 tablet 03/06/17 OxyCODONE/APAP 5/325 [Percocet 1 each PO Q6H PRN #20 tablet 03/06/17 5/325 MG] Allergies Allergy/AdvReac Type Severity Reaction Status Date / Time iodine Allergy Intermediate SOB Verified 07/18/17 14:45 Past Medical History - Past Medical History Medical history: Reports: no medical history Surgical history: Reports: appendectomy, orthopedic, other Psychiatric history: Reports: no psych history FIREARMS EXPERT history: Reports: no FIREARMS EXPERT history - Social History Smoking Status: Never smoker Smokeless Tobacco Status: No Alcohol use: Reports: rarely Drug use: Reports: none Physical Exam - General Limitations: no limitations General appearance: alert, in no apparent distress Course Vital Signs Temperature 98.3 F 08/18/17 21:39 Pulse Rate 81 08/18/17 21:39 Respiratory Rate 18 08/18/17 21:39 Blood Pressure 113/74 08/18/17 21:39 O2 Sat by Pulse Oximetry 98 08/18/17 21:39 Temperature 97.4 F L 08/19/17 00:00 Pulse Rate 81 08/18/17 21:39 Respiratory Rate 20 08/19/17 00:00 Blood Pressure 122/76 08/19/17 00:00 O2 Sat by Pulse Oximetry 98 08/18/17 21:39 Oxygen Delivery Oxygen Delivery Nasal Cannula Medical Decision Making - Lab Data Result diagrams: 08/18/17 21:57 08/18/17 21:57 Lab Results 08/18/17 08/18/17 08/18/17 Range/Units 21:57 21:57 21:57 WBC 6.9 (4.3-11.1) K/mcL RBC 4.83 (3.82-4.97) M/mcL Hgb 15.2 (11.5-15.4) g/dL Hct 46.2 H (35.3-44.9) % MCV 95.7 (83.0-100.0) fL MCH 31.5 (28.0-33.3) pg MCHC 32.9 (31.6-35.5) g/dL RDW 12.4 (11.5-14.5) % Plt Count 234 (140-400) K/mcL MPV 10.9 (9.4-12.4) fL Immature Gran % 0.1 (0-4) % Seg Neutrophils % 53.5 % Lymphocytes % 32.0 % Monocytes % 10.3 % Eosinophils % 3.2 % Basophils % 0.9 % Neutrophils # 3.7 (1.6-8.9) K/mcL Lymphocytes # 2.2 (0.6-4.6) K/mcL Monocytes # 0.7 (0.0-1.3) K/mcL Eosinophils # 0.2 (0.0-0.6) K/mcL Basophils # 0.1 (0.0-0.2) K/mcL PT 10.9 (9.4-12.1) Seconds INR 1.0 APTT 29.1 (26.0-36.0) Seconds Sodium 141 (136-145) mEq/L Potassium 3.9 (3.5-4.5) mEq/L Chloride 108 (98-109) mEq/L Carbon Dioxide 27 (19-29) mEq/L BUN 16 (7-20) mg/dL Creatinine 0.90 (0.57-1.11) mg/dL Est GFR ( Amer) > 60 (> 60) Est GFR (Non-Af Amer) > 60 (> 60) BUN/Creatinine Ratio 18 (6-26) Glucose 88 (70-99) mg/dL Calculated Osmolality 293 (280-300) Calcium 8.9 (8.6-10.8) mg/dL Total Bilirubin 0.5 (0.2-1.2) mg/dL AST 15 (5-34) Units/L ALT 12 (0-55) Units/L Alkaline Phosphatase 77 (38-126) Units/L Serum Total Protein 7.1 (6.0-8.3) g/dL Albumin 3.6 (3.5-5.0) g/dL Globulin 3.5 (2.4-3.5) g/dL Albumin/Globulin Ratio 1.0 L (1.1-2.2) Lipase 27 (8-78) Units/L Blood Type Antibody Screen 08/18/17 Range/Units 21:57 WBC (4.3-11.1) K/mcL RBC (3.82-4.97) M/mcL Hgb (11.5-15.4) g/dL Hct (35.3-44.9) % MCV (83.0-100.0) fL MCH (28.0-33.3) pg MCHC (31.6-35.5) g/dL RDW (11.5-14.5) % Plt Count (140-400) K/mcL MPV (9.4-12.4) fL Immature Gran % (0-4) % Seg Neutrophils % % Lymphocytes % % Monocytes % % Eosinophils % % Basophils % % Neutrophils # (1.6-8.9) K/mcL Lymphocytes # (0.6-4.6) K/mcL Monocytes # (0.0-1.3) K/mcL Eosinophils # (0.0-0.6) K/mcL Basophils # (0.0-0.2) K/mcL PT (9.4-12.1) Seconds INR APTT (26.0-36.0) Seconds Sodium (136-145) mEq/L Potassium (3.5-4.5) mEq/L Chloride (98-109) mEq/L Carbon Dioxide (19-29) mEq/L BUN (7-20) mg/dL Creatinine (0.57-1.11) mg/dL Est GFR ( Amer) (> 60) Est GFR (Non-Af Amer) (> 60) BUN/Creatinine Ratio (6-26) Glucose (70-99) mg/dL Calculated Osmolality (280-300) Calcium (8.6-10.8) mg/dL Total Bilirubin (0.2-1.2) mg/dL AST (5-34) Units/L ALT (0-55) Units/L Alkaline Phosphatase (38-126) Units/L Serum Total Protein (6.0-8.3) g/dL Albumin (3.5-5.0) g/dL Globulin (2.4-3.5) g/dL Albumin/Globulin Ratio (1.1-2.2) Lipase (8-78) Units/L Blood Type O POSITIVE Antibody Screen NEGATIVE Attestation Statement - Attestation Attestation: I examined this patient and my medical decision-making was reviewed with the Resident Physician. I agree with the documented findings, disposition and treatment plan as described except to the extent set forth below. [id number] time provided Patient had an episode of emesis followed by hematemesis. She complains of centrally located abdominal pain. History of hiatal hernia repair and gastric sleeve. Patient appears in no acute distress on exam 23:47: Labs and imaging study reviewed by me. The patient has no extravasation of contrast which might suggest Boerhaave syndrome. She could possibly have a Cristal-Feliz tear. She has no further hematemesis during her ED evaluation. The resident physician did speak with the patient's surgeon who recommended admission to the medicine service. The patient did have an episode where she continued to have chest discomfort-during that time we repeated a portable chest x-ray and an ECG. Both studies did not show any acute changes. She is resting comfortably pending admission to the medicine service
[2017-08-18] MEDS ORDERED: *HR* HYDROmorphone (PF) 1 MG/ML SYRINGE IVP ONE ×2 (21:51→23:41)
--- NOTE | 2017-08-18 22:14 | Emergency Department Note ---
Disposition Clinical Impression: Abdominal pain Qualifiers: Abdominal location: epigastric Qualified Code(s): R10.13 - Epigastric pain Hematemesis Qualifiers: Nausea presence: with nausea Qualified Code(s): K92.0 - Hematemesis Disposition: Admitted As Inpatient Condition: Good Referrals: Vivien Hummel, ASSEMBLY INSPECTOR HELPER [Advanced Practice Nurse] - Forms: ED Satisfaction Letter Time of Disposition: 23:54 General Adult HPI - General Chief complaint: ED GI Bleed Stated complaint: vomiting blood Time Seen by Provider: 08/18/17 21:45 Source: patient Mode of arrival: wheelchair Limitations: no limitations Nursing Notes Reviewed: Yes Vital Signs Reviewed: Yes - History of Present Illness HPI Narrative: 47-year-old female with history of gastric sleeve done in September 2016 and then had to have an emergency hiatal hernia surgery with mesh in 2016 on Mother' s Day. She was recently called by Dr. diop for recent CT that there is some failure of that mesh. She was supposed to meet with Dr. diop this Sunday for possible surgery on Sunday to repair this. She states she was having some pain at her incision site but today it has increased where is unbearable. She states that she has vomited multiple times and most recently she is now vomiting up blood. She says that it is not bright red but it is definitely red in color. Patient states no changes in bowel movements, chest pain, short of breath, fevers, headaches, blurry vision, back pain, pain with urination. She has not no other complaints at this time. Dr. diop was recalled by family and he knows of her being here. Pain Scale: 7 - Related Data Home Medications Medication Instructions Recorded Confirmed Calcium Carbonate/Vitamin D3 1 each PO DAILY 03/04/17 03/04/17 [Calcium 600 + Vit D Tablet] Cyanocobalamin (Vitamin B-12) 1,000 mcg SL DAILY 03/04/17 03/04/17 [Vitamin B-12] Omeprazole [PriLOSEC] 40 mg PO DAILY 03/04/17 03/04/17 Vit/Iron Fumarate/FA 1 each PO DAILY 03/04/17 03/04/17 [ Tablet] Previous Rx's Medication Instructions Recorded Acetaminophen [Tylenol] 650 mg PO Q6HR PRN #0 tablet 03/06/17 OxyCODONE/APAP 5/325 [Percocet 1 each PO Q6H PRN #20 tablet 03/06/17 5/325 MG] Allergies Allergy/AdvReac Type Severity Reaction Status Date / Time iodine Allergy Intermediate SOB Verified 07/18/17 14:45 Review of Systems: 10 point review of systems done and negative unless otherwise stated in history of present illness. All systems ED: reviewed and negative except as stated. Review of Systems: As Per HPI Cardiovascular: Reports: as per HPI Respiratory: Denies: cough, dyspnea, wheezes, hemoptysis, stridor Gastrointestinal: Reports: abdominal pain, nausea, vomiting. Denies: diarrhea, constipation, hematemesis, melena, hematochezia Neurological: Denies: headache, weakness, numbness, paresthesias, confusion, abnormal gait, vertigo Past Medical History - Past Medical History Attestation: Yes The following information was validated with the patient. Medical history: Reports: no medical history Surgical history: Reports: appendectomy, orthopedic, other Psychiatric history: Reports: no psych history INFORMATION DELIVERY ANALYST history: Reports: no INFORMATION DELIVERY ANALYST history - Social History Smoking Status: Never smoker Smokeless Tobacco Status: No Alcohol use: Reports: rarely Drug use: Reports: none Physical Exam - General Limitations: no limitations General appearance: alert, in no apparent distress - Head Head exam: atraumatic, normocephalic, normal inspection - Eye Eye exam: Present: normal appearance - ENT ENT exam: normal exam, normal oropharynx, mucous membranes moist - Neck Neck exam: Present: normal inspection, full ROM, trachea midline - Chest Chest inspection: Present: normal inspection, symmetric chest wall rise - Respiratory Respiratory exam: Present: normal lung sounds bilaterally - Cardiovascular Cardiovascular exam: Present: regular rate, normal rhythm, normal heart sounds - Abdominal Exam Abdominal exam: Present: soft, tenderness, normal bowel sounds, incision (Old scar in the epigastrium from past surgeries.). Absent: distention, guarding, rebound, rigidity, organomegaly Abdominal tenderness: Present: epigastrium, moderate - Expanded Lower Extremity Exam Neurovascular/Tendon exam: Present: normal capillary refill. Absent: pulse deficit, motor deficit, sensory deficit, tendon deficit - Back Exam Back exam: Present: normal inspection, full ROM. Absent: tenderness, CVA tenderness (R), CVA tenderness (L) - Skin Skin exam: Present: warm, dry, intact, normal color Course Course Narrative: Patient has had gastric surgery before so we will get a CT with IV and oral contrast. We will also get basic labs including lipase, lactate, CBC, CMP, coags, type and screen. We will give an IV start fluids and give her Dilaudid for pain and Protonix.. Patient's okay with this plan. - Reevaluation(s) Reevaluation #1: Upon going back from CT patient states that she was having chest pain. She says it hard for her to breathe. We did a stat chest x-ray and repeat EKG in which both came back normal not showing any signs of pneumothorax or acute myocardial infarction. We are not giving her another dose of pain medication to see if that will help with this. Time: 23:43 - Consultations Consultation #1: Spoke with Dr. Gamboa said that this patient needs to be admitted for pain control but to admit to the hospitalist service and if they felt he needed to be consulted he will consult. Time: 23:44 Vital Signs Temperature 98.3 F 08/18/17 21:39 Pulse Rate 81 08/18/17 21:39 Respiratory Rate 18 08/18/17 21:39 Blood Pressure 113/74 08/18/17 21:39 O2 Sat by Pulse Oximetry 98 08/18/17 21:39 Temperature 98.3 F 08/18/17 21:39 Pulse Rate 81 08/18/17 21:39 Respiratory Rate 18 08/18/17 21:39 Blood Pressure 113/74 08/18/17 21:39 O2 Sat by Pulse Oximetry 98 08/18/17 21:39 Oxygen Delivery Oxygen Delivery Room Air Medical Decision Making - [facility] Narrative Medical decision making narrative: 47-year-old female presents the ED with epigastric pain. She has had a history of a gastric sleeve done in September as well as hiatal hernia repair done in February. She has had no Medications until today. She states that she vomited multiple times today the last 2 times she noticed blood streaks in the vomit. Patient states that she was supposed to talk to Dr. diop on Sunday and have a possible surgery done on Sunday. Said the pain was too bearable says when she decided to come in. We did labs including CBC, CMP, lipase and everything came back normal. We also did a CT of her abdomen and pelvis with IV and oral contrast which also showed no acute findings. Patient did not have any signs of Boerhaave syndrome on imaging but she could still have a Cristal-Feliz tear which can be evaluated on the medicine service. Upon coming back from CT she started having chest pain shortness of breath we decided to get a repeat chest x -ray and EKG to see if anything change. There were no signs of pneumothorax or acute myocardial infarction. Her original chest x-ray and EKG were normal as well. We gave her Dilaudid when she first came which did help with her pain. We repeated the dose of Dilaudid when she started having this chest pain. She is feeling better at this time. Contacted Dr. diop who said the patient is being admitted to the hospital service and he will consult. Hospitalist was called and agreed to accept the patient to their service. Patient was admitted to the hospital service in stable condition. Abdomen/Pelvis CT 08/18/17 21:51 IMPRESSION: No acute findings. D/ / Cedric Miranda MD / Cedric Miranda MD Interpreting Provider: Cedric Miranda MD - Medical Records Medical records reviewed: Yes I reviewed the patient's medical records. - Lab Data Lab results reviewed: Yes I reviewed the patient's lab results. Result diagrams: 08/18/17 21:57 08/18/17 21:57 Lab Results 08/18/17 08/18/17 08/18/17 Range/Units 21:57 21:57 21:57 WBC 6.9 (4.3-11.1) K/mcL RBC 4.83 (3.82-4.97) M/mcL Hgb 15.2 (11.5-15.4) g/dL Hct 46.2 H (35.3-44.9) % MCV 95.7 (83.0-100.0) fL MCH 31.5 (28.0-33.3) pg MCHC 32.9 (31.6-35.5) g/dL RDW 12.4 (11.5-14.5) % Plt Count 234 (140-400) K/mcL MPV 10.9 (9.4-12.4) fL Immature Gran % 0.1 (0-4) % Seg Neutrophils % 53.5 % Lymphocytes % 32.0 % Monocytes % 10.3 % Eosinophils % 3.2 % Basophils % 0.9 % Neutrophils # 3.7 (1.6-8.9) K/mcL Lymphocytes # 2.2 (0.6-4.6) K/mcL Monocytes # 0.7 (0.0-1.3) K/mcL Eosinophils # 0.2 (0.0-0.6) K/mcL Basophils # 0.1 (0.0-0.2) K/mcL PT 10.9 (9.4-12.1) Seconds INR 1.0 APTT 29.1 (26.0-36.0) Seconds Sodium 141 (136-145) mEq/L Potassium 3.9 (3.5-4.5) mEq/L Chloride 108 (98-109) mEq/L Carbon Dioxide 27 (19-29) mEq/L BUN 16 (7-20) mg/dL Creatinine 0.90 (0.57-1.11) mg/dL Est GFR ( Amer) > 60 (> 60) Est GFR (Non-Af Amer) > 60 (> 60) BUN/Creatinine Ratio 18 (6-26) Glucose 88 (70-99) mg/dL Calculated Osmolality 293 (280-300) Calcium 8.9 (8.6-10.8) mg/dL Total Bilirubin 0.5 (0.2-1.2) mg/dL AST 15 (5-34) Units/L ALT 12 (0-55) Units/L Alkaline Phosphatase 77 (38-126) Units/L Serum Total Protein 7.1 (6.0-8.3) g/dL Albumin 3.6 (3.5-5.0) g/dL Globulin 3.5 (2.4-3.5) g/dL Albumin/Globulin Ratio 1.0 L (1.1-2.2) Lipase 27 (8-78) Units/L Blood Type Antibody Screen 08/18/17 Range/Units 21:57 WBC (4.3-11.1) K/mcL RBC (3.82-4.97) M/mcL Hgb (11.5-15.4) g/dL Hct (35.3-44.9) % MCV (83.0-100.0) fL MCH (28.0-33.3) pg MCHC (31.6-35.5) g/dL RDW (11.5-14.5) % Plt Count (140-400) K/mcL MPV (9.4-12.4) fL Immature Gran % (0-4) % Seg Neutrophils % % Lymphocytes % % Monocytes % % Eosinophils % % Basophils % % Neutrophils # (1.6-8.9) K/mcL Lymphocytes # (0.6-4.6) K/mcL Monocytes # (0.0-1.3) K/mcL Eosinophils # (0.0-0.6) K/mcL Basophils # (0.0-0.2) K/mcL PT (9.4-12.1) Seconds INR APTT (26.0-36.0) Seconds Sodium (136-145) mEq/L Potassium (3.5-4.5) mEq/L Chloride (98-109) mEq/L Carbon Dioxide (19-29) mEq/L BUN (7-20) mg/dL Creatinine (0.57-1.11) mg/dL Est GFR ( Amer) (> 60) Est GFR (Non-Af Amer) (> 60) BUN/Creatinine Ratio (6-26) Glucose (70-99) mg/dL Calculated Osmolality (280-300) Calcium (8.6-10.8) mg/dL Total Bilirubin (0.2-1.2) mg/dL AST (5-34) Units/L ALT (0-55) Units/L Alkaline Phosphatase (38-126) Units/L Serum Total Protein (6.0-8.3) g/dL Albumin (3.5-5.0) g/dL Globulin (2.4-3.5) g/dL Albumin/Globulin Ratio (1.1-2.2) Lipase (8-78) Units/L Blood Type O POSITIVE Antibody Screen NEGATIVE - Radiology Data Radiology results reviewed: Yes I reviewed the patient's radiology results. - EKG Data EKG #1 EKG attestation: Yes I reviewed and interpreted this EKG. EKG results narrative: EKG done by myself and the attending at 2203 shows normal sinus rhythm at rate of 68, OH interval 170, QRS 79, QTC 397 with a leftward axis. There are no acute ST changes, T-wave changes. No signs of heart blocks or heart strain. No signs to be W Jamie Laura syndrome. All EKG done 03/04/17 also shows normal sinus rhythm with no acute changes. Overall impression is normal sinus rhythm with no acute changes. EKG shows normal: sinus rhythm, QRS complexes Rate: normal Rhythm: NSR Hudson/QRS: left axis deviation When compared to previous EKG there are: no significant changes Interpretation: no acute changes, normal EKG EKG #2 EKG attestation: Yes I reviewed and interpreted this EKG. EKG results narrative: EKG was done because patient was having chest pain difficulty breathing this was done at 2336 review myself and attending also shows a normal sinus rhythm with no acute changes. When compared with the earlier one done today there were absolutely no differences. She had a rate of 65, QRS 80, QTC 402 with the same leftward axis. There are no acute ST, T wave changes. No signs of heart strain, Wpw/brugada. EKG shows normal: sinus rhythm, intervals, QRS complexes, ST-T waves Rate: normal Rhythm: NSR Hudson/QRS: left axis deviation When compared to previous EKG there are: no significant changes Interpretation: no acute changes, normal EKG
[2017-08-18 22:16] LABS: Basophils # 0.1 K/mcL (0.0-0.2); Basophils % 0.9 %; Eosinophils # 0.2 K/mcL (0.0-0.6); Eosinophils % 3.2 %; Hematocrit 46.2 % (35.3-44.9); Hemoglobin 15.2 g/dL (11.5-15.4); Immature Granulocytes % 0.1 % (0-4); Lymphocytes # 2.2 K/mcL (0.6-4.6); Mean Corpuscular HGB Conc 32.9 g/dL (31.6-35.5); Mean Corpuscular Hemoglobin 31.5 pg (28.0-33.3); Mean Corpuscular Volume 95.7 fL (83.0-100.0); Mean Platelet Volume 10.9 fL (9.4-12.4); Monocytes # 0.7 K/mcL (0.0-1.3); Monocytes % 10.3 %; Neutrophils # 3.7 K/mcL (1.6-8.9); Platelet Count 234 K/mcL (140-400); Red Blood Count 4.83 M/mcL (3.82-4.97); Red Cell Distribution Width 12.4 % (11.5-14.5); Segmented Neutrophils % 53.5 %
[2017-08-18 22:21] LABS: Prothrombin Time 10.9 Seconds (9.4-12.1)
[2017-08-18 22:23] LABS: Activated Partial Thrombo Time 29.1 Seconds (26.0-36.0)
[2017-08-18 22:31] LABS: Alanine Aminotransferase 12 Units/L (0-55); Albumin 3.6 g/dL (3.5-5.0); Alkaline Phosphatase 77 Units/L (38-126); Aspartate Amino Transferase 15 Units/L (5-34); BUN/Creatinine Ratio 18 (6-26); Bilirubin,Total 0.5 mg/dL (0.2-1.2); Blood Urea Nitrogen 16 mg/dL (7-20); Calcium 8.9 mg/dL (8.6-10.8); Carbon Dioxide 27 mEq/L (19-29); Chloride 108 mEq/L (98-109); Globulin 3.5 g/dL (2.4-3.5); Glucose 88 mg/dL (70-99); Lipase 27 Units/L (8-78); Osmolality,Calculated 293 (280-300); Potassium 3.9 mEq/L (3.5-4.5); Sodium 141 mEq/L (136-145); Total Protein 7.1 g/dL (6.0-8.3); eGFR For African Americans > 60 (> 60); eGFR For Non-African Americans > 60 (> 60)
[2017-08-19] MEDS ORDERED: Naloxone 0.4 MG/ML INJ IVP PRN (00:51)
--- NOTE | 2017-08-19 00:52 | Event Note ---
Date of Encounter: 08/19/17 Time of Encounter: 00:51 Patient seen and examined with medical transcriber. A degree with assessment and plan. Suspect Cristal Macho tear. Protonix drip follow H&H. Observation admisison
[2017-08-19] MEDS ORDERED: *HR* LORazepam 0.5 MG TABLET PO PRN (00:55)
--- NOTE | 2017-08-19 01:06 | Internal Med History&Physical ---
Date of Encounter: 08/19/17 Time of Encounter: 00:57 Assessment and Plan (1) Jose-Feliz tear Current visit: Yes Status: Suspected - Suspect jose feliz tear given HPI - Reports of retching and increased effort while vomiting this evening. - Hemodynamically stable since admission. - H/H stable. - Will give supportive care. Pain control. Protonix drip. Monitoring - Clear liquid diet as tolerated. (2) Ventral hernia Current visit: No Status: Chronic S/p repair in february 2017. Abdominal CT as outpatient showing start of mesh failure. - Dr. Sears placed. Aware. Called from ED, states that this is not medical emergency. Recommends pain control and follow up outpatient. - Stable, no evidence of strangulation. Continue to monitor. Qualifiers: Obstruction and gangrene presence: without obstruction or gangrene Qualified Code(s): K43.9 - Ventral hernia without obstruction or gangrene (3) Abdominal pain Current visit: Yes Status: Acute - Likely secondary to retching, hernia, possible gastritis from food etiology - Will control pain while admission. - Progress diet as tolerated. - To follow up with Dr. Sears as outpatient upon discharge. Qualifiers: Abdominal location: unspecified location Qualified Code(s): R10.9 - Unspecified abdominal pain (4) Hematemesis Current visit: Yes Status: Acute - Likely secondary to jose feliz tear due to retching. - Treatment as above. Qualifiers: Nausea presence: with nausea Qualified Code(s): K92.0 - Hematemesis (5) Chest pain Current visit: Yes Status: Acute - Likely secondary to MSk pain from retching vs Anxiety - Improved from ED. - Pt reports SOB, pain is reproducible. - EKG NSR, XRay unremarkable, troponins negative. - Pain control, ativan PRN Qualifiers: Chest pain type: unspecified Qualified Code(s): R07.9 - Chest pain, unspecified (6) DVT prophylaxis Current visit: Yes Status: Acute Hold Heparin from hematemasis. - SCDs Internal Medicine - H&P: HPI Chief complaint: hematemasis Admitted From: Emergency Dept Plans for Post Hospital Care: Home History of present illness: Ms. Ness is a 47 year old female with a PMHx of gastric sleeve in september 2016 and ventral hernia with mesh failure operated on 03/07 presents to ED with a complaint of an episode of hematemasis x 1 episode this afternoon. Pt states that she was watching the [employer] game [employer] and had a sudden onset epigastric abdominal pain while standing in the kitchen. She sat down and the pain subsided. She then had a sudden urge to vomit a few moments later. She states she began vomiting, which is difficult ever since the gastric sleeve, involving much retching. Near the end of the episode, she noticed gross, bright red blood , approximately 2 ounces. Around the same time, she also experienced substernal chest pain. She denies any symptoms of SOB, cough, diarrhea, further abdominal pain, hematochezia, melena, LE edema, fevers, chills. She called Dr. Sears, who did her surgeries, who told her to come the the ED for further evaluation. Denies NSAID use or previous history of recent ulcers. In the ED, VS have been stable. Labs unremarkable. CXR and abdominal CT showed no acute changes. On her way to radiology, she began to experience chest pain. EKG showed NSR. Pain resolved with dilaudid. Past Med Surg Social Fam HX - Past Medical History Medical history: no medical history Psychiatric history: no psych history - Past Surgical History Surgical History: appendectomy, orthopedic, other - Social History Smoking Status: Never smoker Smokeless Tobacco Status: No Alcohol use: rarely Drug use: none - Family History Father Hx Family Cardiac Disorders: Yes (MIx3) Hx Family Cancer: Yes (colon cancer) Hx Family Endocrine Disorder: Yes (diabetes) Mother Hx Family Cancer: Yes (Non Hodgkins lymphoma stage 4) Internal Medicine - H&P: Meds Calcium Carbonate/Vitamin D3 [Calcium 600 + Vit D Tablet] 1 each PO DAILY [History] Cyanocobalamin (Vitamin B-12) [Vitamin B-12] 1,000 mcg SL DAILY 03/04/17 [ History] Omeprazole [PriLOSEC] 40 mg PO DAILY 03/04/17 [History] Vit/Iron Fumarate/FA [ Tablet] 1 each PO DAILY 03/04/17 [ History] Acetaminophen [Tylenol] 650 mg PO Q6HR PRN #0 tablet 03/06/17 [Rx] OxyCODONE/APAP 5/325 [Percocet 5/325 MG] 1 each PO Q6H PRN #20 tablet 03/06/17 [ Rx] 3 Allergy/AdvReac Type Severity Reaction Status Date / Time iodine Allergy Intermediate SOB Verified 07/18/17 14:45 All Systems PM: A 10-system review of systems was performed and is negative for pertinent findings except as documented above in the HPI. - Constitutional Constitutional: no chills, no excessive sweating, no fever(s), no lethargy, no weakness - Cardiovascular Cardiovascular ROS IM: chest pain, no diaphoresis, no dyspnea, no dyspnea on exertion, no edema, no lightheadedness, no palpitations - Respiratory Respiratory: no cough, no dyspnea, no hemoptysis, no dyspnea on exertion - Gastrointestinal Gastrointestinal: abdominal pain, hematemesis, nausea, vomiting, no change in bowel habits, no change in stool character, no constipation, no diarrhea, no melena - Genitourinary Genitourinary: no hematuria - Neurological Neurological ROS: headache(s), no numbness, no tingling, no weakness - Constitutional Vitals: Temp Pulse Resp BP Pulse Ox 97.4 F L 81 20 122/76 98 08/19/17 00:00 08/18/17 21:39 08/19/17 00:00 08/19/17 00:00 08/18/17 21:39 Exam: Gen.: Vitals noted. No acute distress. AAOx3 HEENT: PERRL, consticted pupils 1mm. oropharynx clear, Normocephalic, atraumatic , MMM Neck: Supple. No adenopathy. Cardiac: RRR, no murmur, +S1/S2. reproducible substernal chest pain. Pulmonary: CTA bilaterally, no wheezes, rales or rhonchi, equal chest expansion Abdomen: soft, tender to palpation in RUQ, epigastric, LLL, suprapubic. BS noted , no guarding. well healed incision from ventral hernia. MSK: ROM intact, no joint swelling noted Extremities: no BLE edema, nontender calf, no cyanosis or clubbing Neuro: A&Ox3, moves all extremities, no focal deficits Psych: Appropriate mood and behavior Internal Med - H&P Results - Labs CBC & Chem 7: 08/18/17 21:57 08/18/17 21:57
[2017-08-19] MEDS: *HR* Morphine 2 MG/ML SYRINGE IVP PRN ×2 (01:31→16:41)
[2017-08-19] MEDS: Ondansetron 4 MG/2 ML VIAL IVP PRN ×3 (01:31→11:50)
[2017-08-19] MEDS: Pantoprazole 40 MG in 0.9 % Sodium Chloride Mini Bag 100 ML IVC SCH ×5 (01:34→18:56)
[2017-08-19 03:52] LABS: Basophils % 0.1 %; Eosinophils % 0.3 %; Immature Granulocytes % 0.3 % (0-4); Lymphocytes # 0.9 K/mcL (0.6-4.6); Lymphocytes % 10.4 %; Mean Corpuscular HGB Conc 32.5 g/dL (31.6-35.5); Mean Corpuscular Hemoglobin 31.6 pg (28.0-33.3); Mean Corpuscular Volume 97.3 fL (83.0-100.0); Monocytes # 0.7 K/mcL (0.0-1.3); Monocytes % 7.7 %; Neutrophils # 7.1 K/mcL (1.6-8.9); Platelet Count 191 K/mcL (140-400); Red Blood Count 4.11 M/mcL (3.82-4.97); Red Cell Distribution Width 12.4 % (11.5-14.5); Segmented Neutrophils % 81.2 %
[2017-08-19 04:03] LABS: BUN/Creatinine Ratio 19 (6-26); Blood Urea Nitrogen 15 mg/dL (7-20); Calcium 8.4 mg/dL (8.6-10.8); Carbon Dioxide 25 mEq/L (19-29); Chloride 111 mEq/L (98-109); Glucose 118 mg/dL (70-99); Osmolality,Calculated 296 (280-300); Potassium 4.9 mEq/L (3.5-4.5); Sodium 142 mEq/L (136-145); eGFR For African Americans > 60 (> 60); eGFR For Non-African Americans > 60 (> 60)
[2017-08-19] MEDS ORDERED: Pantoprazole 40 MG VIAL IVP SCH (06:00)
[2017-08-19] MEDS ORDERED: Ondansetron 4 MG/2 ML VIAL IVP ONE (06:29)
[2017-08-19] MEDS: *HR* HYDROcodone/Acet 5/325 mg TABLET PO PRN (06:50)
[2017-08-19] MEDS: 0.9 % Sodium Chloride 1,000 ML IVC SCH ×2 (11:51→22:06)
[2017-08-19] MEDS ORDERED: *HR* Promethazine 25 MG/ML VIAL IVP PRN (12:25)
[2017-08-19] MEDS ORDERED: Ondansetron 4 MG/2 ML VIAL IVP PRN (12:26)
--- NOTE | 2017-08-19 13:35 | General Surgery Consult Note ---
Date of Encounter: 08/19/17 Time of Encounter: 12:00 History of Present Illness Consult date: 08/19/17 Reason for consult: abdominal pain Requesting physician: Roger Macias History of present illness: General Surgery - Consulted for abdominal pain, N/V and hematemesis. Patient describes new onset abrupt intense abdominal pain last evening. This was followed with N/V. Several episodes emesis occurred followed by hematemesis. The patient called me at home and was instructed to present to the ED for further evaluation. That evaluation was unremarkable except for persistent abdmoninal pain not controlled with IV narcotics. CBC, electolytes, BUN, Cr, and CT abdomen/pelvis were non diagnostic. No further N/V or hematemesis has occurred. This AM, patient was resting comfortably. No recurrent N/V. Repeat H&H 13.0/ 40.0. WBC 8.8 Lungs: Clear to auscultation, no abdominal pain with deep inspiration Abdomen: Epigastric tenderness, no associated abdominal wall masses, no intra abdominal masses or peritoneal signs / no rebound Evidence prior repair incarcerated ventral hernia with mesh, 03/04/2017. The surgical scar is caudal to the area of current tenderness. Active bowel sounds. PMH: morbid obesity Surgical history: status post gastric sleeve approximately October 2016 with concomitant repair of ventral hernia which recurred became incarcerated requiring emergent surgical intervention 03/04/17. Tonsillectomy, adenoidectomy and cholecystectomy; orthopedic procedures? Allergies: Iodine - exposure reported to cause shortness of breath Medications: Calcium carbonate/vitamin D3 one by mouth daily Cyanocobalamin 1000 g sublingually daily Omeprazole 40 mg by mouth daily vitamin/iron/folic ( vitamin) acid 1 by mouth daily Acetaminophen 650 mg by mouth every 6 hours when necessary pain Social history: Never smoker; G2, P2; patient also denies any alcohol or illicit drug use. Impression: 47 yo admitted for intractable abd pain after presenting to the ED last evening for further evaluation reported hematemesis. No recurrent N/V since presentation to ED or admission. Patient still c/o abdominal pain. H&H 13.0/40.0. Likely Cristal-Feliz tear following recurrent emesis against a closed glottis. Will schedule EGD in AM for further assessment. Discussed with patient. Risks include hemorrhage, infection, aspiration, cramping abdominal pain, bloatint and perforation. The EGD may demonstrate no findings that explain patient complaints. Consent has been obtained. Past Med Surg Social Fam HX - Past Medical History Medical history: no medical history Psychiatric history: no psych history - Past Surgical History Surgical History: appendectomy, orthopedic, other - Social History Smoking Status: Never smoker Smokeless Tobacco Status: No Alcohol use: rarely Drug use: none - Family History Father Hx Family Cardiac Disorders: Yes (MIx3) Hx Family Cancer: Yes (colon cancer) Hx Family Endocrine Disorder: Yes (diabetes) Mother Hx Family Cancer: Yes (Non Hodgkins lymphoma stage 4) Medications and Allergies No Known Home Drugs 08/19/17 [History] 3 Allergy/AdvReac Type Severity Reaction Status Date / Time iodine Allergy Intermediate SOB Verified 07/18/17 14:45 Review of Systems All systems PM: A 10-system review of systems was performed and is negative for pertinent findings except as documented above in the HPI. General Surgery Exam Initial Vital Signs Temp Pulse Resp BP Pulse Ox 98.3 F 81 18 113/74 98 08/18/17 21:39 08/18/17 21:39 08/18/17 21:39 08/18/17 21:39 08/18/17 21:39 Exam Initial Vital Signs Temp Pulse Resp BP Pulse Ox 98.3 F 81 18 113/74 98 08/18/17 21:39 08/18/17 21:39 08/18/17 21:39 08/18/17 21:39 08/18/17 21:39 Results - Labs 08/19/17 03:16 08/19/17 03:16 Abnormal lab results Potassium 4.9 mEq/L (3.5-4.5) H D 08/19/17 03:16 Chloride 111 mEq/L (98-109) H 08/19/17 03:16 Glucose 118 mg/dL (70-99) H 08/19/17 03:16 Calcium 8.4 mg/dL (8.6-10.8) L 08/19/17 03:16 Albumin/Globulin Ratio 1.0 (1.1-2.2) L 08/18/17 21:57 Diabetes panel 08/19/17 Range/Units 03:16 Sodium 142 (136-145) mEq/L Potassium 4.9 H D (3.5-4.5) mEq/L Chloride 111 H (98-109) mEq/L Carbon Dioxide 25 (19-29) mEq/L BUN 15 (7-20) mg/dL Creatinine 0.79 (0.57-1.11) mg/dL Glucose 118 H (70-99) mg/dL Calcium 8.4 L (8.6-10.8) mg/dL Calcium panel 08/19/17 Range/Units 03:16 Calcium 8.4 L (8.6-10.8) mg/dL Pituitary panel 08/19/17 Range/Units 03:16 Sodium 142 (136-145) mEq/L Potassium 4.9 H D (3.5-4.5) mEq/L Chloride 111 H (98-109) mEq/L Carbon Dioxide 25 (19-29) mEq/L BUN 15 (7-20) mg/dL Creatinine 0.79 (0.57-1.11) mg/dL Glucose 118 H (70-99) mg/dL Calcium 8.4 L (8.6-10.8) mg/dL Adrenal panel 08/19/17 Range/Units 03:16 Sodium 142 (136-145) mEq/L Potassium 4.9 H D (3.5-4.5) mEq/L Chloride 111 H (98-109) mEq/L Carbon Dioxide 25 (19-29) mEq/L BUN 15 (7-20) mg/dL Creatinine 0.79 (0.57-1.11) mg/dL Glucose 118 H (70-99) mg/dL Calcium 8.4 L (8.6-10.8) mg/dL All other labs normal. Consult Discharge Plan - Plan Referrals: Robert Wooten Jr, MD [Primary Care Provider] -
--- NOTE | 2017-08-19 14:08 | Event Note ---
Date of Encounter: 08/19/17 Time of Encounter: 11:00 Pt admitted earlier today with acute abdominal pain and nausea with vomiting. She had hematemesis following a bout of retching. She has had recurrent nausea relieved with Zofran. Still with abdominal pain. Exam Alert. Uncomfortable due to nausea BP 94/65 Heart reg - not tachycardic currently Lungs diminished Abd with bowel sounds - tender epigastric area Plan Appreciate surgical eval - endoscopy tomorrow. Check CT of chest to eval esophagus Monitor H/H PPI IV fluids for BP.
[2017-08-19 14:41] LABS: Hematocrit 39.5 % (35.3-44.9); Hemoglobin 12.8 g/dL (11.5-15.4); Mean Corpuscular HGB Conc 32.4 g/dL (31.6-35.5); Mean Corpuscular Hemoglobin 31.6 pg (28.0-33.3); Mean Corpuscular Volume 97.5 fL (83.0-100.0); Mean Platelet Volume 11.1 fL (9.4-12.4); Platelet Count 176 K/mcL (140-400); Red Blood Count 4.05 M/mcL (3.82-4.97); Red Cell Distribution Width 12.5 % (11.5-14.5)
[2017-08-19 14:53] LABS: BUN/Creatinine Ratio 14 (6-26); Blood Urea Nitrogen 10 mg/dL (7-20); Calcium 8.3 mg/dL (8.6-10.8); Carbon Dioxide 24 mEq/L (19-29); Chloride 110 mEq/L (98-109); Glucose 81 mg/dL (70-99); Magnesium 1.8 mg/dL (1.6-2.6); Osmolality,Calculated 288 (280-300); Potassium 3.9 mEq/L (3.5-4.5); Sodium 140 mEq/L (136-145); eGFR For African Americans > 60 (> 60); eGFR For Non-African Americans > 60 (> 60)
[2017-08-19] MEDS: Acetaminophen 325 MG TABLET PO PRN (22:03)
[2017-08-20] MEDS: *HR* HYDROcodone/Acet 5/325 mg TABLET PO PRN ×2 (02:40→08:31)
[2017-08-20] MEDS: Pantoprazole 40 MG in 0.9 % Sodium Chloride Mini Bag 100 ML IVC SCH ×4 (02:41→13:51)
[2017-08-20 03:01] LABS: Hemoglobin 12.5 g/dL (11.5-15.4); Mean Corpuscular HGB Conc 32.1 g/dL (31.6-35.5); Mean Corpuscular Hemoglobin 31.5 pg (28.0-33.3); Mean Corpuscular Volume 98.2 fL (83.0-100.0); Mean Platelet Volume 11.1 fL (9.4-12.4); Platelet Count 167 K/mcL (140-400); Red Blood Count 3.97 M/mcL (3.82-4.97); Red Cell Distribution Width 12.3 % (11.5-14.5)
[2017-08-20 03:15] LABS: BUN/Creatinine Ratio 12 (6-26); Blood Urea Nitrogen 8 mg/dL (7-20); Calcium 8.2 mg/dL (8.6-10.8); Carbon Dioxide 22 mEq/L (19-29); Chloride 114 mEq/L (98-109); Glucose 76 mg/dL (70-99); Osmolality,Calculated 289 (280-300); Sodium 141 mEq/L (136-145); eGFR For African Americans > 60 (> 60); eGFR For Non-African Americans > 60 (> 60)
[2017-08-20 03:20] LABS: Potassium 4.1 mEq/L (3.5-4.5)
[2017-08-20] MEDS: 0.9 % Sodium Chloride 1,000 ML IVC SCH (10:45)
[2017-08-20] MEDS ORDERED: *HR* Midazolam HCl 5 MG/5 ML VIAL IVP ONE (11:18)
[2017-08-20] MEDS ORDERED: *HR* FentaNYL (PF) 100 MCG/2 ML VIAL ONE (11:19)
[2017-08-20] MEDS ORDERED: Simethicone 40 MG/0.6 ML MLS IR ONE (11:48)
[2017-08-20] MEDS ORDERED: Tetracaine/Benzocaine/Butamben 200MG/SPRAY (100SPY/BOT) MM ONE (11:48)
[2017-08-20] MEDS ORDERED: *HR* Midazolam HCl 5 MG/5 ML VIAL IVP PRN (11:48)
[2017-08-20] MEDS ORDERED: *HR* FentaNYL (PF) 100 MCG/2 ML VIAL IVP PRN (11:48)
--- NOTE | 2017-08-20 11:52 | Pre-Sedation Evaluation ---
Pre-sedation evaluation - Pre-sedation checklist Date of procedure: 08/20/17 Procedure: EGD Recent Vitals: Last Vital Signs Temp 97.4 F L 08/20/17 11:25 Pulse 67 08/20/17 11:25 Resp 18 08/20/17 11:25 BP 122/80 08/20/17 11:25 Pulse Ox 92 08/20/17 11:25 Dietary Status: NPO after Midnight Airway Assessment: Patient can open mouth completely, TMJ function normal, Micrognathia (under-bite, receding chin) absent, Neck with adequate range of motion Dentition: No loose teeth or bridges Possible difficult airway: No ASA Classification *see protocol: CLASS II-Mild systemic disease Plan of Care: Pt appropriate candidate for procedure/moderate/conscious sedation , Risks/benefits of procedure/sedation discussed w/ patient/family, If not NPO; Risk of intake outweiged by necessity to perform procedure
[2017-08-20] MEDS ORDERED: GI Cocktail 40 ML EACH PO ONE (14:03)
--- NOTE | 2017-08-20 17:09 | Electrocardiograph Report ---
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
--- NOTE | 2017-08-20 17:10 | Electrocardiograph Report ---
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
[2017-08-20] MEDS ORDERED: *HR* Promethazine 25 MG/ML VIAL IVP PRN (18:51)
[2017-08-20] MEDS ORDERED: Ondansetron 4 MG/2 ML VIAL IVP PRN (18:51)
--- NOTE | 2017-08-20 19:55 | Internal Med Progress Note ---
Date of Encounter: 08/20/17 Time of Encounter: 16:00 - Assessment and plan (1) Esophagitis Current Visit: Yes Status: Acute Assessment and plan: PPI and carafate (2) Gastritis Current Visit: Yes Status: Acute Assessment and plan: PPI Qualifiers: Gastritis type: superficial Chronicity: acute Gastritis bleeding: without bleeding Qualified Code(s): K29.00 - Acute gastritis without bleeding (3) Abdominal pain Current Visit: Yes Status: Acute Assessment and plan: Continue supportive care. Qualifiers: Abdominal location: left lower quadrant Qualified Code(s): R10.32 - Left lower quadrant pain (4) Hematemesis Current Visit: Yes Status: Resolved Qualifiers: Nausea presence: with nausea Qualified Code(s): K92.0 - Hematemesis - Subjective Interval history: Ms Ness is currently in observation for abdominal pain. Ms Ness had EGD today with gastritis and esophagitis. She is still somnolent post procedure. No fever or chills. No CP or SOB. - Constitutional Vitals: Temp Pulse Resp BP Pulse Ox 97.9 F 77 16 91/65 92 08/20/17 19:51 08/20/17 19:51 08/20/17 19:51 08/20/17 19:51 08/20/17 19:51 General appearance: Present: A&O X 3 - Head Head exam: Present: normocephalic - Eye Eye exam: Present: conjuntiva pink - ENT ENT exam: Present: mucous membranes moist - Respiratory Respiratory exam: Absent: rhonchi, wheezes - Cardiovascular Cardiovascular exam: Present: RRR. Absent: tachycardia - GI/Abdominal GI/Abdominal exam: Present: soft - Extremities Exam Extremities exam: Present: warm. Absent: tenderness - Neurological Exam Neurological exam: Present: alert, oriented X3 Internal Medicine: Result - Labs CBC & Chem 7: 08/20/17 02:30 08/20/17 02:30 Labs: Short CBC 08/20/17 Range/Units 02:30 WBC 3.9 L (4.3-11.1) K/mcL Hgb 12.5 (11.5-15.4) g/dL Hct 39.0 (35.3-44.9) % Plt Count 167 (140-400) K/mcL BMP 08/20/17 02:30 Sodium 141 Potassium 4.1 Chloride 114 H Carbon Dioxide 22 BUN 8 Creatinine 0.68 Glucose 76 Calcium 8.2 L - ABG Interpretation ABG results: PT/INR, D-dimer PT 10.9 Seconds (9.4-12.1) 08/18/17 21:57 Consult Discharge Plan - Plan Referrals: Robert Wooten Jr, MD [Primary Care Provider] -
[2017-08-20] MEDS: *HR* Morphine 2 MG/ML SYRINGE IVP PRN (21:12)
[2017-08-20] MEDS: Sucralfate 1 GM TABLET PO SCH (21:12)
[2017-08-20] MEDS: Acetaminophen 325 MG TABLET PO PRN (23:55)
[2017-08-21] MEDS: 0.9 % Sodium Chloride 1,000 ML IVC SCH ×2 (05:21→05:22)
[2017-08-21 05:56] LABS: Hematocrit 37.2 % (35.3-44.9); Hemoglobin 12.2 g/dL (11.5-15.4); Mean Corpuscular HGB Conc 32.8 g/dL (31.6-35.5); Mean Corpuscular Hemoglobin 31.8 pg (28.0-33.3); Mean Corpuscular Volume 96.9 fL (83.0-100.0); Mean Platelet Volume 11.5 fL (9.4-12.4); Platelet Count 178 K/mcL (140-400); Red Blood Count 3.84 M/mcL (3.82-4.97); Red Cell Distribution Width 12.1 % (11.5-14.5)
[2017-08-21 06:09] LABS: BUN/Creatinine Ratio 8 (6-26); Calcium 8.1 mg/dL (8.6-10.8); Carbon Dioxide 24 mEq/L (19-29); Chloride 113 mEq/L (98-109); Glucose 76 mg/dL (70-99); Magnesium 1.7 mg/dL (1.6-2.6); Osmolality,Calculated 294 (280-300); Potassium 3.7 mEq/L (3.5-4.5); Sodium 144 mEq/L (136-145); eGFR For African Americans > 60 (> 60); eGFR For Non-African Americans > 60 (> 60)
[2017-08-21 06:10] LABS: Blood Urea Nitrogen 5 mg/dL (7-20)
[2017-08-21] MEDS: Sucralfate 1 GM TABLET PO SCH ×3 (08:52→15:57)
[2017-08-21] MEDS ORDERED: Pantoprazole 40 MG VIAL IVP SCH (09:00)
[2017-08-21] MEDS ORDERED: 0.9 % Sodium Chloride 1,000 ML IVC SCH (10:06)
[2017-08-21] MEDS: *HR* HYDROcodone/Acet 5/325 mg TABLET PO PRN (11:17)
[2017-08-21] MEDS ORDERED: Metoclopramide 10 MG/2 ML VIAL IVP ONE (12:41)
[2017-08-21 15:32] VITALS: BP 102/69
--- NOTE | 2017-08-21 17:06 | Discharge Summary ---
Date of Encounter: 08/21/17 Time of Encounter: 17:02 - Discharge Diagnosis (1) Gastritis Priority: Primary Status: Acute Qualifiers: Gastritis type: superficial Chronicity: acute Gastritis bleeding: without bleeding Qualified Code(s): K29.00 - Acute gastritis without bleeding (2) Hematemesis Priority: Secondary Status: Resolved Qualifiers: Nausea presence: with nausea Qualified Code(s): K92.0 - Hematemesis (3) Esophagitis Priority: Primary Status: Acute (4) Abdominal pain Priority: Secondary Status: Resolved Qualifiers: Abdominal location: epigastric Qualified Code(s): R10.13 - Epigastric pain (5) S/P repair of ventral hernia Priority: Secondary Status: Chronic - Discharge Medications Prescriptions: HYDROcodone/Acet 5/325 mg [[place] 5-325 mg] 1 tab PO Q4HR PRN #15 tablet PRN Reason: Moderate Pain (4-6) Metoclopramide [Reglan] 10 mg PO QIDAC PRN #60 tablet PRN Reason: Nausea Omeprazole [PriLOSEC] 40 mg PO DAILY #30 cap Sucralfate [Carafate] 1 gm PO QIDAC #120 tablet Home Medications: HYDROcodone/Acet 5/325 mg [[place] 5-325 mg] 1 tab PO Q4HR PRN #15 tablet [Rx] Metoclopramide [Reglan] 10 mg PO QIDAC PRN #60 tablet 08/21/17 [Rx] Omeprazole [PriLOSEC] 40 mg PO DAILY #30 cap 08/21/17 [Rx] Sucralfate [Carafate] 1 gm PO QIDAC #120 tablet 08/21/17 [Rx] Allergies/Adverse Reactions: 3 Allergy/AdvReac Type Severity Reaction Status Date / Time iodine Allergy Intermediate SOB Verified 07/18/17 14:45 Procedures/tests Complete & Pending: Procedures Performed prior 72 hours Category Date Time Status CT chest wo con [CT] Routine Cat Scan 08/19/17 13:12 Completed Date of admission: 08/18/17 23:53 Primary care physician: Robert Wooten Jr, MD Consults: Renu Discharging clinician: Shay Philippe Anticipated date of discharge: 08/21/17 - Patient Status Disposition: Home, Self-Care Condition: Good Functional capacity at discharge: independent ambulation Overall status at discharge: patient is progressing back to baseline - Discharge Instructions Follow Up With: Robert Wooten Jr, MD [Primary Care Provider] - (called left a message) Additional Instructions: Follow up with Dr. Sears in 2 weeks. - Diet and Activity Activity: increase activity as tolerated Diet: advance to your usual diet Hospital course: Ms. Ness is a 47 year old female with hx of gastric sleeve and ventral hernia s/p repair presented to ED with severe abd pain and vomiting. She has some hematemesis as well. She was evaluated and placed in observation for further work up. Ms Ness was placed in observation on med tele. She continued to have issues with abd pain and vomiting. She was given antiemetic and pain meds. She was seen by surgery and underwent EGD which showed esophagitis and gastritis - H pylori negative. She continued to have issues with persistent nausea and vomiting and was unable to keep much down despite medications. On 08/21 she was given IV Reglan with significant improvement. She was afebrile with stable vitals and ready for discharge home. - Time Spent with Patient Total time spent providing and/or coordinating discharge services: - Constitutional Vitals: Temp Pulse Resp BP Pulse Ox 98.8 F 61 16 102/69 93 08/21/17 15:30 08/21/17 15:30 08/21/17 15:30 08/21/17 15:30 08/21/17 15:30 General appearance: Present: A&O X 3, answers questions appropriately - Head Head exam: Present: normocephalic - Eye Eye exam: Present: conjuntiva pink - ENT ENT exam: Present: mucous membranes moist - Respiratory Respiratory exam: Present: CTAB. Absent: rhonchi, wheezes - Cardiovascular Cardiovascular exam: Present: RRR. Absent: tachycardia - GI/Abdominal GI/Abdominal exam: Present: soft. Absent: tenderness - Extremities Exam Extremities exam: Present: warm. Absent: tenderness - Neurological Exam Neurological exam: Present: alert, oriented X3, no focal deficits
== END 2017-08-21 18:17 | disposition home or self-care (01) ==
LOC: EMEROO 21:34 → 2ANU 21:34 → SUATTDRO 23:53 → 2ANU 08-19 00:20
PROVIDERS: ADMIT Internal Medicine; ATTEND Internal Medicine
PROC: ENDOEBX (2017-08-20 15:30)

== ENCOUNTER 2017-11-01 16:09 | Observation (INO) ==
[2017-11-01] MEDS ORDERED: Vancomycin 1,000 MG in D5% in Water 250 ML IVPB STA (16:55)
[2017-11-01] MEDS ORDERED: D5% in 0.9% NACL 500 ML IVC SCH (17:00)
[2017-11-01 17:22] LABS: Basophils # 0.1 K/mcL (0.0-0.2); Basophils % 0.7 %; Eosinophils # 0.1 K/mcL (0.0-0.6); Hematocrit 41.9 % (35.3-44.9); Hemoglobin 13.6 g/dL (11.5-15.4); Immature Granulocytes % 0.3 % (0-4); Lymphocytes % 14.1 %; Mean Corpuscular HGB Conc 32.5 g/dL (31.6-35.5); Mean Corpuscular Hemoglobin 30.6 pg (28.0-33.3); Mean Corpuscular Volume 94.4 fL (83.0-100.0); Mean Platelet Volume 10.1 fL (9.4-12.4); Monocytes # 0.6 K/mcL (0.0-1.3); Monocytes % 8.4 %; Neutrophils # 5.3 K/mcL (1.6-8.9); Platelet Count 353 K/mcL (140-400); Red Blood Count 4.44 M/mcL (3.82-4.97); Red Cell Distribution Width 11.9 % (11.5-14.5); Segmented Neutrophils % 74.5 %
[2017-11-01 17:41] LABS: Carbon Dioxide 23 mEq/L (23-29); Chloride 106 mEq/L (98-107); Sodium 135 mEq/L (136-145)
[2017-11-01] MEDS ORDERED: Vancomycin 1,250 MG in D5% in Water 250 ML IVPB ONE (17:45)
[2017-11-01 17:46] LABS: BUN/Creatinine Ratio 5 (6-26); Blood Urea Nitrogen 5 mg/dL (6-20); eGFR For African Americans > 60 (> 60); eGFR For Non-African Americans > 60 (> 60)
[2017-11-01] MEDS: D5% in 0.9% NACL 1,000 ML IVC SCH (17:51)
[2017-11-01] MEDS: Piperacillin/Tazobactam 3.375 GM/200 ML BAG IVPB SCH (18:15)
[2017-11-01] MEDS: *HR* Heparin 5,000 UNIT/ML VIAL SQ SCH (18:15)
[2017-11-01] MEDS ORDERED: Ondansetron 4 MG/2 ML VIAL IVP SCH (20:00)
[2017-11-02] MEDS: Ondansetron 4 MG/2 ML VIAL IVP PRN ×4 (01:33→21:46)
[2017-11-02] MEDS ORDERED: *HR* HYDROmorphone (PF) 1 MG/ML SYRINGE IVP ONE (03:30)
[2017-11-02] MEDS: D5% in 0.9% NACL 1,000 ML IVC SCH ×2 (03:48→18:25)
[2017-11-02] MEDS: Piperacillin/Tazobactam 3.375 GM/200 ML BAG IVPB SCH ×3 (03:49→18:27)
[2017-11-02] MEDS: *HR* Heparin 5,000 UNIT/ML VIAL SQ SCH ×2 (04:51→18:25)
[2017-11-02] MEDS ORDERED: Vancomycin 1,250 MG in D5% in Water 250 ML IVPB SCH (06:30)
[2017-11-02] MEDS: Vancomycin 1,250 MG in D5% in Water 250 ML IVPB SCH (10:08)
--- NOTE | 2017-11-02 10:43 | General Surg History&Physical ---
Date of Encounter: 11/02/17 Time of Encounter: 10:30 History of Present Illness Chief complaint: Nausea, anorexia, weakness and dizziness HPI: Ms. Landry is a 47 year old female admitted for further evaluation and treatment nausea, anorexia, weakness and dizziness suggestive of acute dehydration. The patient presented to my office with a multitude of complaints describing weakness and near syncope whenever she tried to arise out of bed. Appetite is been severely depressed with very little by mouth intake. Despite these complaints she was ambulatory to my office. The patient has been admitted for labs IVs including IV antibiotics and further evaluation as indicated. Past medical history is notable for morbid obesity, recurrent ventral incisional hernia with incarceration and a subsequent recurrent ventral incisional hernia which underwent repair on 10/03/17. The original incisional hernia resulted from a gastric sleeve procedure. Surgical history: Tonsillectomy with adenoidectomy; gastric sleeve with concomitant repair of ventral hernia; repair incarcerated recurrent epigastric ventral incisional hernia with mesh, 03/04/17; EGD July 2017; colonoscopy last completed 09/2013 with a normal colon described. Exploratory celiotomy with lysis of adhesions removal mesh prosthesis and suture closure recurrent ventral incisional hernia 10/03/17. Allergies: Phenergan, IV contrast, plastic tape Medications: Calcium plus vitamin D3 plus minerals 600 mg 1 by mouth daily Ibuprofen dose not specified as needed for pain vitamins 1 by mouth daily Vitamin B12 500 mg by mouth daily Stool softener 100 mg by mouth daily Social history: G2, P2; patient has never smoked, she denies any illicit drug use. She consumes alcohol on "special occasions" Family history: Daughter with chronic cholecystitis On physical examination: Age-appropriate woman 63 inches tall, 203 pounds, BMI 36.0 Patient was tachycardic around 115 bpm; blood pressure 108/70 Skin was warm, without obvious jaundice; mucous membranes were moist. Turgor appeared normal Lungs: Clear to auscultation; no obvious pain on deep inspiration Cardiac: Tachycardic without appreciable murmurs Abdomen: Obese, soft with minimal epigastric tenderness. No obvious intra- abdominal masses, hepatosplenomegaly, or peritoneal signs. No rebound. Active bowel sounds. Epigastric midline incision appears well-healed, however, left of midline there is purulent drainage from the retention suture tracts. These retention sutures were removed approximately 1 week ago. No obvious fascial defects were detected. Extremities: No obvious clubbing, cyanosis or edema. Impression: A 47-year-old female, approximately 4 weeks status post repair of a recurrent ventral incisional hernia. The patient presents to my office with weakness, dizziness, nausea and anorexia with clinical signs and symptoms consistent with dehydration. The patient will be admitted to the [facility] for IV fluids, continuation of antibiotics which were initiated as an outpatient and further evaluation if her symptoms persist. Past Med Surg Social Fam HX - Past Medical History Medical history: no medical history Psychiatric history: no psych history - Past Surgical History Surgical History: appendectomy, cholecystectomy, herniorrhaphy, orthopedic, other, bariatric surgery - Social History Smoking Status: Never smoker Smokeless Tobacco Status: No Alcohol use: rarely Drug use: none - Family History Father Hx Family Cardiac Disorders: Yes (MIx3) Hx Family Cancer: Yes (colon cancer) Hx Family Endocrine Disorder: Yes (diabetes) Mother Adopted: No Family Member Ethnicity: Non- Living Status: Still Living Hx Family Cardiac Disorders: No Hx Family Respiratory Disorders: No Hx Family Cancer: Yes (Non-Hodgkins Lymphoma) Hx Family Endocrine Disorder: Yes (Hyperthyroidism) Hx Family Neuromuscular Disorders: No Hx Family Neurologic Disorders: No Hx Family HEENT Disorders: No Hx Family Autoimmune Disorders: No Medications and Allergies Calcium Carbonate [Calcium] 600 mg PO DAILY 10/03/17 [History] Cyanocobalamin (Vitamin B-12) [Vitamin B-12] 1,000 mcg SL DAILY 10/03/17 [ History] Docusate [Colace] 100 mg PO DAILY 10/03/17 [History] Pnv95/Ferrous Fumarate/FA [ Formula Tablet] 1 tab PO DAILY 10/03/17 [ History] Acetaminophen [Tylenol] 650 mg PO Q6HR PRN tablet 10/06/17 [Rx] HYDROcodone/Acet 5/325 mg [[place] 5-325 mg] 1 tab PO Q6H PRN #10 tablet 10/06/17 [Rx] Metoclopramide [Reglan] 10 mg PO QIDAC tablet 10/06/17 [Rx] Polyethylene Glycol 3350 [MiraLAX] 17 gm PO DAILY powd.pack 10/06/17 [Rx] Sucralfate [Carafate] 1 gm PO QIDAC tablet 10/06/17 [Rx] 3 Allergy/AdvReac Type Severity Reaction Status Date / Time iodine Allergy Intermediate Difficulty Verified 10/03/17 08:11 Breathing promethazine [From Phenergan] Allergy Difficulty Verified 10/03/17 08:11 Breathing Review of Systems All systems PM: A 10-system review of systems was performed and is negative for pertinent findings except as documented above in the HPI. General Surgery Exam Initial Vital Signs Temp Pulse Resp BP Pulse Ox 97.8 F 87 14 118/77 94 11/01/17 19:46 11/01/17 19:46 11/01/17 19:46 11/01/17 19:46 11/01/17 19:46 Results - Labs 11/01/17 17:10 11/01/17 17:10 Abnormal lab results Sodium 135 mEq/L (136-145) L 11/01/17 17:10 BUN 5 mg/dL (6-20) L 11/01/17 17:10 BUN/Creatinine Ratio 5 (6-26) L 11/01/17 17:10 Diabetes panel 11/01/17 Range/Units 17:10 Sodium 135 L (136-145) mEq/L Potassium 4.0 (3.5-5.1) mEq/L Chloride 106 (98-107) mEq/L Carbon Dioxide 23 (23-29) mEq/L BUN 5 L (6-20) mg/dL Creatinine 0.95 (0.60-1.20) mg/dL Pituitary panel 11/01/17 Range/Units 17:10 Sodium 135 L (136-145) mEq/L Potassium 4.0 (3.5-5.1) mEq/L Chloride 106 (98-107) mEq/L Carbon Dioxide 23 (23-29) mEq/L BUN 5 L (6-20) mg/dL Creatinine 0.95 (0.60-1.20) mg/dL Adrenal panel 11/01/17 Range/Units 17:10 Sodium 135 L (136-145) mEq/L Potassium 4.0 (3.5-5.1) mEq/L Chloride 106 (98-107) mEq/L Carbon Dioxide 23 (23-29) mEq/L BUN 5 L (6-20) mg/dL Creatinine 0.95 (0.60-1.20) mg/dL All other labs normal.
--- NOTE | 2017-11-02 10:49 | General Surgery Progress Note ---
Date of Encounter: 11/02/17 Time of Encounter: 10:30 Subjective Patient reports: feels better, still having pain Narrative: Hospital day #1: Patient feeling somewhat improved but still complaining of nausea and epigastric abdominal pain. An episode of vomiting last evening which the patient attributes to "choking on water". Patient has remained afebrile, pulse 70, respirations 16 and unlabored; blood pressure has been variable from 94/66- 118/77. Lungs: Clear to auscultation with no obvious abdominal pain and deep inspiration Cardiac: Tachycardia noted in the office has resolved Abdomen: Soft, diminished but persistent epigastric abdominal pain. The purulent drainage from the described retention suture tracks left of midline has diminished. I do not detect any fascial defects. Exam is limited by body habitus. No elicited peritoneal signs, no rebound. Urine output recorded at 200 mL since admission; patient reports multiple voids. Labs: White count 7.1, hemoglobin 13.6, hematocrit 41.9. Platelet count 353,000 ; differential unremarkable. Electro lites notable for sodium mildly depressed at 135 other electrolytes, BUN, creatinine within normal limits. Impression: 47-year-old female approximately 4 weeks postop referred to a [facility] from the office after presenting with nausea, anorexia, weakness and dizziness. The patient appears to have responded to IV fluids administered since admission but is still complaining of nausea. A single episode of emesis was noted through the night. Recorded oral intake is 25% of dinner; breakfast intake was not recorded. Plan: Continue IV fluids and IV antibiotics Serial abdominal exams. Allow diet as tolerated. Objective Vital Signs - Last 8 Hours Temp Pulse Resp BP Pulse Ox 11/02/17 07:10 98.3 F 70 16 94/66 94 11/02/17 03:44 98.0 F 65 15 103/71 96 Intake and Output 11/01/17 11/02/17 11/02/17 23:59 07:59 15:59 Intake Total 400 / 400 1300 / 1300 200 / 200 Output Total 0 / 0 200 / 200 Balance 400 / 400 1100 / 1100 200 / 200 Intake: IV Fluids 200 / 200 1000 / 1000 200 / 200 D5% And 0.9% Nacl 1000 Ml 1,000 1000 / 1000 ML @ 100 mls/hr IVC .Q10H IVY Rx#:[id number] Zosyn Premix 3.375 GM/200 ML 3. 200 / 200 200 / 200 375 gm In 200 ml @ 50 mls/hr IVPB Q8H [facility] Rx#:[id number] Oral 200 / 200 300 / 300 Output: Urine 0 / 0 200 / 200 Other: Meal Dinner Percent of Meal Consumed 25% Weight 91.138 kg 91.135 kg Patient Weight 11/02/17 23:59 Weight 91.135 kg - Labs 11/01/17 17:10 11/01/17 17:10 Diabetes panel 11/01/17 Range/Units 17:10 Sodium 135 L (136-145) mEq/L Potassium 4.0 (3.5-5.1) mEq/L Chloride 106 (98-107) mEq/L Carbon Dioxide 23 (23-29) mEq/L BUN 5 L (6-20) mg/dL Creatinine 0.95 (0.60-1.20) mg/dL Pituitary panel 11/01/17 Range/Units 17:10 Sodium 135 L (136-145) mEq/L Potassium 4.0 (3.5-5.1) mEq/L Chloride 106 (98-107) mEq/L Carbon Dioxide 23 (23-29) mEq/L BUN 5 L (6-20) mg/dL Creatinine 0.95 (0.60-1.20) mg/dL Adrenal panel 11/01/17 Range/Units 17:10 Sodium 135 L (136-145) mEq/L Potassium 4.0 (3.5-5.1) mEq/L Chloride 106 (98-107) mEq/L Carbon Dioxide 23 (23-29) mEq/L BUN 5 L (6-20) mg/dL Creatinine 0.95 (0.60-1.20) mg/dL Consult Discharge Plan - Plan Referrals: Robert Wooten Jr, MD [Primary Care Provider] -
[2017-11-02] MEDS: *HR* HYDROmorphone (PF) 1 MG/ML SYRINGE IVP PRN ×3 (11:35→21:46)
[2017-11-02] MEDS ORDERED: Aminoglycoside Consult 1 EACH MC ONE (16:24)
[2017-11-03] MEDS: Vancomycin 1,250 MG in D5% in Water 250 ML IVPB SCH (00:33)
[2017-11-03] MEDS: *HR* HYDROmorphone (PF) 1 MG/ML SYRINGE IVP PRN ×5 (02:07→20:52)
[2017-11-03] MEDS: Ondansetron 4 MG/2 ML VIAL IVP PRN ×5 (02:07→20:52)
[2017-11-03] MEDS: Piperacillin/Tazobactam 3.375 GM/200 ML BAG IVPB SCH ×2 (02:15→10:49)
[2017-11-03] MEDS: *HR* Heparin 5,000 UNIT/ML VIAL SQ SCH ×2 (06:41→18:19)
[2017-11-03] MEDS: D5% in 0.9% NACL 1,000 ML IVC SCH ×2 (09:02→15:48)
[2017-11-03] MEDS ORDERED: Vancomycin 1,250 MG in D5% in Water 250 ML IVPB SCH (13:00)
[2017-11-03] MEDS ORDERED: D5% in 0.9% NACL 1,000 ML IVC SCH (14:08)
--- NOTE | 2017-11-03 14:14 | General Surgery Progress Note ---
Date of Encounter: 11/03/17 Time of Encounter: 14:09 Subjective Patient reports: nausea Narrative: Hospital day #2 - patient continues to complain of severe nausea; no noted emesis per nursing notes Drainage from cephalad retention suture dramatically diminished; the others retention suture sites Clean and dry Afebrile, currently 97.6, pulse 70, respirations 16, blood pressure 104 72 ( stable) Lungs: Clear Abdomen: Soft with minimal epigastric tenderness. Active bowel sounds. Estimated intake for breakfast 40%; lunch was sitting at bedside without any obvious intake Urine output: 7 mL for 11/02/17; 1500 mL recorded for this date. We will reduce IV fluids. Impression: Continued complaints of nausea - reported to be refractory to Zofran however the patient indicates she had an allergic response to Phenergan. She describes the response to Phenergan as "jitteriness". With diminished drainage will discontinue vancomycin as well as Zosyn and resume Bactrim DS Objective Vital Signs - Last 8 Hours Temp Pulse Resp BP Pulse Ox 11/03/17 12:22 97.6 F 70 16 104/72 94 Intake and Output 11/02/17 11/03/17 11/03/17 23:59 07:59 15:59 Intake Total 700 / 700 790 / 790 1480 / 1480 Output Total 500 / 500 1100 / 1100 400 / 400 Balance 200 / 200 -310 / -310 1080 / 1080 Intake: IV Fluids 200 / 200 450 / 450 1000 / 1000 D5% And 0.9% Nacl 1000 Ml 1,000 1000 / 1000 ML @ 75 mls/hr IVC .[id number] IVY Rx#:[id number] Zosyn Premix 3.375 GM/200 ML 3. 200 / 200 200 / 200 375 gm In 200 ml @ 50 mls/hr IVPB Q8H IVY Rx#:[id number] Vancocin 1,250 MG In Dextrose 5 250 / 250 % 250 ML @ 166.67 mls/hr IVPB Q12H IVY Rx#:[id number] Oral 500 / 500 340 / 340 480 / 480 Output: Urine 500 / 500 1100 / 1100 400 / 400 Other: Meal Dinner Breakfast Percent of Meal Consumed 25% 40% Weight 91.133 kg Patient Weight 11/03/17 23:59 Weight 91.133 kg - Labs 11/01/17 17:10 11/01/17 17:10 Consult Discharge Plan - Plan Referrals: Robert Wooten Jr, MD [Primary Care Provider] -
[2017-11-03] MEDS: Sulfamethoxazole/Trimeth DS 1 EACH TABLET PO SCH ×2 (15:48→20:53)
[2017-11-04] MEDS: *HR* HYDROmorphone (PF) 1 MG/ML SYRINGE IVP PRN ×3 (00:54→09:46)
[2017-11-04] MEDS: Ondansetron 4 MG/2 ML VIAL IVP PRN ×3 (00:54→09:46)
[2017-11-04] MEDS: *HR* Heparin 5,000 UNIT/ML VIAL SQ SCH (05:32)
[2017-11-04] MEDS: D5% in 0.9% NACL 1,000 ML IVC SCH (05:33)
[2017-11-04 05:43] LABS: Basophils % 0.7 %; Eosinophils # 0.4 K/mcL (0.0-0.6); Eosinophils % 6.5 %; Hematocrit 37.6 % (35.3-44.9); Hemoglobin 12.2 g/dL (11.5-15.4); Immature Granulocytes % 0.2 % (0-4); Lymphocytes # 1.2 K/mcL (0.6-4.6); Lymphocytes % 21.3 %; Mean Corpuscular HGB Conc 32.4 g/dL (31.6-35.5); Mean Corpuscular Hemoglobin 31.3 pg (28.0-33.3); Mean Corpuscular Volume 96.4 fL (83.0-100.0); Mean Platelet Volume 10.2 fL (9.4-12.4); Monocytes # 0.6 K/mcL (0.0-1.3); Monocytes % 9.6 %; Neutrophils # 3.5 K/mcL (1.6-8.9); Platelet Count 265 K/mcL (140-400); Red Cell Distribution Width 12.4 % (11.5-14.5); Segmented Neutrophils % 61.7 %
[2017-11-04 07:06] VITALS: BP 98/66
[2017-11-04] MEDS: Sulfamethoxazole/Trimeth DS 1 EACH TABLET PO SCH (09:46)
--- NOTE | 2017-11-04 11:38 | General Surgery Progress Note ---
Date of Encounter: 11/04/17 Time of Encounter: 11:29 Subjective Patient reports: no new complaints (nausea diminished) Narrative: General Surgery - Progress note / Discharge Summary Hospital day #3: Patient asleep but easily arousable; patient indicates that she is feeling better. Nausea diminished but still present The patient has remained afebrile, currently 98.4; hemodynamically stable with pulse of 54, respirations 16, blood pressure 98/66 to 107/73 Tolerating diet without nausea or vomiting Lungs: Clear Abdomen: Soft, nontender. Active bowel sounds. Increased purulent drainage from the left cephalad retention suture site. No obvious fascial defects to indicate a recurrent ventral incisional hernia No obvious intra-abdominal masses or rebound. Laboratories: White count 5.7, hemoglobin 12.2, hematocrit 37.6; platelet count 265,000. Differential within normal limits. Hospital course - the patient admitted to [facility] after presenting to my office 11/01/17 complaining of nausea, anorexia, weakness and dizziness. Patient appeared to be mildly to moderately dehydrated. A direct observation admission was arranged to an able IV therapy including IV antibiotics. She remained stable through the course of 3 days with no fever, chills or hemodynamic instability. Laboratories were unremarkable. The patient's primary complaint was that of nausea but this seems to have slowly diminished discontinuation of the IV vancomycin. With resolution of her acute symptoms, patient was discharged home to continue outpatient wound care and management. The patient was discharged to [facility] in fair condition, in no acute distress, Impression/Plan: Dehydration, weakness, dizziness, anorexia resolved Persistent nausea but patient able to consume meals without vomiting Superficial infection cephalad retention suture. Draining freely with no intra-abdominal or peritoneal findings Will continue Bactrim DS as an outpatient with wound care to include cleansing with soap and water, irrigating with hydrogen peroxide, and dry sterile gauze. Patient has Bactrim DS, Zofran ODT and dressings at home Follow up my office, 11/08/17; patient to call office in AM to make appointment Objective Vital Signs - Last 8 Hours Temp Pulse Resp BP Pulse Ox 11/04/17 09:53 95 11/04/17 07:00 98.4 F 54 16 98/66 95 11/04/17 03:39 98.2 F 63 15 107/73 95 Intake and Output 11/03/17 11/04/17 11/04/17 23:59 07:59 15:59 Intake Total 400 / 400 1000 / 1000 240 / 240 Output Total 0 / 0 Balance 400 / 400 1000 / 1000 240 / 240 Intake: IV Fluids 1000 / 1000 D5% And 0.9% Nacl 1000 Ml 1,000 1000 / 1000 ML @ 40 mls/hr IVC .Q24H IVY Rx#:[id number] Oral 400 / 400 0 / 0 240 / 240 Output: Urine 0 / 0 Other: Meal Breakfast Percent of Meal Consumed 25% # Voids 2 2 - Labs 11/04/17 05:14 11/01/17 17:10 Consult Discharge Plan - Plan Referrals: Robert Wooten Jr, MD [Primary Care Provider] -
--- NOTE | 2017-11-04 11:45 | Discharge Summary ---
Outpatient Proc Discharge Plan - Plan Instructions: Sulfamethoxazole/Trimethoprim (By mouth) Additional Instructions: Regular diet as tolerated Activity as tolerated; lifting limited to less than 20 pounds Continue Bactrim DS as prescribed prior to admission. Continue Zofran ODT for nausea, also prescribed prior to admission Cleanse wound with soap and water, irrigated with half-strength hydrogen peroxide and apply clean dry sterile gauze dressing twice a day All up in the office, 11/08/17; patient to call office in a.m. to make this appointment Home Medications: Calcium Carbonate [Calcium] 600 mg PO DAILY 10/03/17 [History] Cyanocobalamin (Vitamin B-12) [Vitamin B-12] 1,000 mcg SL DAILY 10/03/17 [ History] Docusate [Colace] 100 mg PO DAILY 10/03/17 [History] Pnv95/Ferrous Fumarate/FA [ Formula Tablet] 1 tab PO DAILY 10/03/17 [ History] Acetaminophen [Tylenol] 650 mg PO Q6HR PRN tablet 10/06/17 [Rx] HYDROcodone/Acet 5/325 mg [[place] 5-325 mg] 1 tab PO Q6H PRN #10 tablet 10/06/17 [Rx] Metoclopramide [Reglan] 10 mg PO QIDAC tablet 10/06/17 [Rx] Polyethylene Glycol 3350 [MiraLAX] 17 gm PO DAILY powd.pack 10/06/17 [Rx] Sucralfate [Carafate] 1 gm PO QIDAC tablet 10/06/17 [Rx] Ciprofloxacin HCl [Cipro] 500 mg PO BID 11/02/17 [History] Sulfamethoxazole/Trimeth DS [Bactrim Ds] 1 tab PO BID 11/02/17 [History]
== END 2017-11-04 16:25 | disposition home or self-care (01) ==
LOC: 3ANU
PROVIDERS: ADMIT Surgery; ATTEND Surgery

== ENCOUNTER 2019-08-21 14:07 | Observation (INO) ==
[2019-08-21 14:42] LABS: Hematocrit 45.9 % (35.3-44.9); Hemoglobin 15.6 g/dL (11.5-15.4); Mean Corpuscular Volume 94.3 fL (83.0-100.0); Mean Platelet Volume 10.3 fL (9.4-12.4); Platelet Count 265 K/mcL (140-400); Red Blood Count 4.87 M/mcL (3.82-4.97); Red Cell Distribution Width 11.8 % (11.5-14.5); White Blood Count 5.1 K/mcL (4.3-11.1)
[2019-08-21] MEDS ORDERED: Isovue-370 500 ML BOTTLE IVP ONE (14:42)
[2019-08-21] MEDS ORDERED: Ondansetron 4 MG/2 ML VIAL ONE (14:44)
[2019-08-21 14:53] LABS: Activated Partial Thrombo Time 34.6 Seconds (26.0-36.0)
[2019-08-21] MEDS ORDERED: Ondansetron 4 MG/2 ML VIAL IVP ONE (14:56)
[2019-08-21] MEDS ORDERED: Tetracaine 0.5% OPTH 80 DROP/4 ML BOTTLE LEFT EYE ONE (15:27)
[2019-08-21] MEDS ORDERED: Fluorescein Sodium STRIP OP ONE (15:28)
[2019-08-21 15:29] LABS: BUN/Creatinine Ratio 18 (6-26); Blood Urea Nitrogen 13 mg/dL (6-20); C-Reactive Protein < 5 mg/L (Less than 10); Calcium 8.8 mg/dL (8.6-10.3); Carbon Dioxide 26 mEq/L (23-29); Chloride 109 mEq/L (98-107); Glucose 94 mg/dL (70-105); Osmolality,Calculated 290 (280-300); Potassium 3.7 mEq/L (3.5-5.1); Sodium 140 mEq/L (136-145); Troponin I < 0.03 ng/mL (< 0.04); eGFR For African Americans > 60 (> 60); eGFR For Non-African Americans > 60 (> 60)
[2019-08-21] MEDS ORDERED: Metoclopramide 10 MG/2 ML VIAL IVP ONE (15:45)
[2019-08-21] MEDS ORDERED: Aspirin 81 MG TAB.CHEW PO STA (16:11)
[2019-08-21] MEDS ORDERED: Naloxone 0.4 MG/ML INJ IVP PRN (17:25)
[2019-08-21] MEDS ORDERED: Ketorolac 30 MG/ML VIAL IVP ONE (17:32)
[2019-08-21] MEDS: *HR* Heparin 5,000 UNIT/ML VIAL SQ SCH (23:15)
[2019-08-22 04:57] LABS: Basophils % 0.6 %; Eosinophils # 0.1 K/mcL (0.0-0.6); Eosinophils % 1.2 %; Hematocrit 43.5 % (35.3-44.9); Hemoglobin 14.5 g/dL (11.5-15.4); Immature Granulocytes % 0.2 % (0-4); Lymphocytes # 1.4 K/mcL (0.6-4.6); Mean Corpuscular HGB Conc 33.3 g/dL (31.6-35.5); Mean Platelet Volume 10.5 fL (9.4-12.4); Monocytes # 0.5 K/mcL (0.0-1.3); Monocytes % 10.5 %; Platelet Count 246 K/mcL (140-400); Red Blood Count 4.53 M/mcL (3.82-4.97); Red Cell Distribution Width 11.7 % (11.5-14.5); Segmented Neutrophils % 59.5 %; White Blood Count 5.1 K/mcL (4.3-11.1)
[2019-08-22 05:03] LABS: BUN/Creatinine Ratio 15 (6-26); Blood Urea Nitrogen 10 mg/dL (6-20); Calcium 8.8 mg/dL (8.6-10.3); Carbon Dioxide 25 mEq/L (23-29); Chloride 109 mEq/L (98-107); Glucose 95 mg/dL (70-105); Osmolality,Calculated 289 (280-300); Potassium 3.8 mEq/L (3.5-5.1); Sodium 140 mEq/L (136-145); eGFR For African Americans > 60 (> 60); eGFR For Non-African Americans > 60 (> 60)
[2019-08-22] MEDS: *HR* Heparin 5,000 UNIT/ML VIAL SQ SCH ×3 (06:03→22:00)
[2019-08-22] MEDS: Cyanocobalamin (B-12) 1,000 MCG TABLET PO SCH (08:50)
[2019-08-22] MEDS ORDERED: Ondansetron 4 MG/2 ML VIAL IVP PRN (15:48)
[2019-08-22] MEDS ORDERED: Dexamethasone 4 MG/ML VIAL IVP ONE (16:12)
[2019-08-22] MEDS: Ketorolac 30 MG/ML VIAL IVP PRN ×2 (16:34→21:53)
[2019-08-22] MEDS: Metoclopramide 10 MG/2 ML VIAL IVP PRN ×2 (17:06→21:53)
[2019-08-23] MEDS: *HR* Heparin 5,000 UNIT/ML VIAL SQ SCH (05:22)
[2019-08-23 07:00] LABS: Basophils % 0.1 %; Hematocrit 45.4 % (35.3-44.9); Hemoglobin 15.7 g/dL (11.5-15.4); Immature Granulocytes % 0.3 % (0-4); Lymphocytes # 0.8 K/mcL (0.6-4.6); Lymphocytes % 10.8 %; Mean Corpuscular HGB Conc 34.6 g/dL (31.6-35.5); Mean Corpuscular Volume 92.7 fL (83.0-100.0); Mean Platelet Volume 10.4 fL (9.4-12.4); Monocytes # 0.2 K/mcL (0.0-1.3); Monocytes % 2.7 %; Neutrophils # 6.7 K/mcL (1.6-8.9); Platelet Count 287 K/mcL (140-400); Red Cell Distribution Width 11.6 % (11.5-14.5); Segmented Neutrophils % 86.1 %
[2019-08-23 07:09] LABS: White Blood Count 7.8 K/mcL (4.3-11.1)
[2019-08-23 07:11] LABS: BUN/Creatinine Ratio 17 (6-26); Blood Urea Nitrogen 12 mg/dL (6-20); Calcium 9.5 mg/dL (8.6-10.3); Carbon Dioxide 24 mEq/L (23-29); Chloride 106 mEq/L (98-107); Glucose 130 mg/dL (70-105); Osmolality,Calculated 288 (280-300); Potassium 4.2 mEq/L (3.5-5.1); Sodium 138 mEq/L (136-145); eGFR For African Americans > 60 (> 60); eGFR For Non-African Americans > 60 (> 60)
[2019-08-23 07:22] VITALS: BP 121/83
[2019-08-23] MEDS: Cyanocobalamin (B-12) 1,000 MCG TABLET PO SCH (08:51)
[2019-08-23] MEDS ORDERED: Pantoprazole 40 MG VIAL IVP SCH (09:00)
== END 2019-08-23 12:16 | disposition home or self-care (01) ==
LOC: 3BNU 14:07 → EMEROOARM 14:07 → SUATTDRO 16:19 → 3BNU 18:00
PROVIDERS: ADMIT Internal Medicine; ATTEND Internal Medicine